=== PATIENT | female | born 1960 | race Caucasian/White ===

== ENCOUNTER → 2021-04-13 08:21 | Outpatient (CLI) | payer MEDICARE, OTHER, SELFPAY ==
--- NOTE | 2021-04-13 08:27 | US_ITS ---
PROCEDURE: US GALLBLADDER CLINICAL INDICATION: ABD PAIN COMPARISON: No exams were available for comparison FINDINGS: Pancreas: Unremarkable/Not well seen Liver: Unremarkable. There is appropriate direction of blood flow within a non dilated portal vein. Right kidney: Unremarkable appearing. No hydronephrosis. Gallbladder: No stones are evident. There is no gallbladder wall thickening. Common duct is normal in diameter. IMPRESSION: Negative gallbladder ultrasound. No stones evident. Dictated by: Donny Govea MD 04/13/2021 16:35 Donny Govea MD in [place] 04/13/2021 16:35
== END ==
PROVIDERS: PCP Emergency Medicine; Visit Provider Emergency Medicine
DX: R10.11 Right upper quadrant pain (principal)
CPT/HCPCS: 76705

== ENCOUNTER 2023-04-19 16:23 | Emergency (ER) | payer MEDICARE, OTHER, SELFPAY ==
[2023-04-19 16:24] VITALS: BP 116/65; PULSE 99; RESP 18; TEMP 36.8; O2SAT 92; BMI 36.6
--- NOTE | 2023-04-19 16:24 | HMH.EDGENADL ---
Discharge Plan Disposition Patient Disposition: Xfer SNF Condition: Good Prescriptions Prescriptions: No Action oxybutynin chloride 10 mg Tablet Extended Release 24hr 10 mg PO DAILY Hold Instructions: Resume on 04/30/23. metoprolol tartrate 100 mg Tablet 100 mg PO BID clonazepam 0.5 mg tablet 0.5 mg PO TID Patient Comments: 0.5 MG orally three times a day risperidone 3 mg Tablet 3 mg PO BID nifedipine 60 mg Tablet Extended Release 24hr 60 mg PO DAILY nystatin 100,000 unit/gram Cream 1 applic TOPICAL QIDP PRN (Reason: Redness) bupropion HCl 150 mg Tablet Extended Release 24 Hr 150 mg PO DAILY sodium chloride 1,000 mg tablet,soluble 1,000 mg PO DAILY cephalexin 500 mg capsule 500 mg PO QID 7 Days Qty: 28 0RF Rx Instructions: First dose on 04/24/23 Referrals Follow up/Referrals: Monty Jimenes MD [Primary Care Provider] - See instructions Activity Restrictions/Add. Instructions Additional Instructions/Restrictions: Please take antibiotics as prescribed for UTI. Clinical Impressions Clinical Impression: UTI (urinary tract infection), Fall Discharge ED Provider: Pranav Ambrose General Adult HPI General Chief complaint: Fall Stated complaint: weakness Time Seen by Provider: 04/19/23 16:28 History of Present Illness HPI narrative: 62-year-old female reported history of schizophrenia presents from nursing facility for multiple falls and urinating on herself today. Patient was ambulatory with EMS prior to arrival. Nursing, reports concern for UTI though does not have a diagnosis. Patient is seemingly unwilling to participate in history or exam. She is alert partially oriented. Specifically denies any chest pain shortness of breath headache neck pain back pain or loss of consciousness. Does report left knee pain. Related Data Home Medications Medication Instructions Recorded Confirmed bupropion HCl 150 mg 24 hr tablet, 150 mg PO DAILY mood 04/22/23 04/22/23 extended release clonazepam 0.5 mg tablet 0.5 mg PO TID Anxiety 04/22/23 04/22/23 metoprolol tartrate 100 mg tablet 100 mg PO BID High Blood Pressure 04/22/23 04/22/23 nifedipine 60 mg tablet,extended 60 mg PO DAILY High Blood Pressure 04/22/23 04/22/23 release 24 hr nystatin 100,000 unit/gram topical 1 applic topical QIDP PRN Redness 04/22/23 04/22/23 cream oxybutynin chloride 10 mg 10 mg PO DAILY Urinary 04/22/23 04/22/23 tablet,extended release 24 hr risperidone 3 mg tablet 3 mg PO BID mood 04/22/23 04/22/23 sodium chloride 1,000 mg soluble 1,000 mg PO DAILY Supplement 04/22/23 04/22/23 tablet Previous Rx's Medication Instructions Recorded cephalexin 500 mg capsule 500 mg PO QID 7 days #28 caps 04/23/23 Allergies Allergy/AdvReac Type Severity Reaction Status Date / Time ciprofloxacin [From CIPRO] Allergy Unknown Verified 04/19/23 18:39 [facility] Disclaimer: The information contained in this section may have been updated after the patient was seen, as this information can be updated by other users. Social History Smoking Status: Never smoker alcohol intake: never current occupational status: disabled Travel in the last 8 weeks: None housing: [facility] ROS Obtained: Yes All systems reviewed & no additional complaints except as documented Physical Exam General General appearance: alert, in no apparent distress and obese Head Head exam: atraumatic and normocephalic Eye Eye exam: Present normal appearance, PERRL and EOMI ENT ENT exam: Present normal oropharynx and normal external ear exam Neck Neck exam: Present normal inspection and full ROM Chest Chest inspection: Present normal inspection and symmetric chest wall rise; Absent tenderness Respiratory Respiratory exam: Present normal lung sounds bilaterally; Absent respiratory distress Cardiovascular Cardiovascular
--- NOTE | 2023-04-19 16:33 | XR_ITS ---
PROCEDURE INFORMATION: Exam: XR Left Knee Exam date and time: 04/19/2023 5:22 PM Age: 62 years old Clinical indication: Injury or trauma; Fall; Blunt trauma; Knee; Left TECHNIQUE: Imaging protocol: Radiologic exam of the left knee. Views: 3 views. Total images: 3 COMPARISON: No relevant prior studies available. FINDINGS: Bones/joints: No evidence of acute fracture or dislocation. Soft tissues: Soft tissues are within normal limits. IMPRESSION: No evidence of acute fracture or dislocation.
--- NOTE | 2023-04-19 16:34 | XR_ITS ---
PROCEDURE INFORMATION: Exam: XR Chest Exam date and time: 04/19/2023 5:22 PM Age: 62 years old Clinical indication: Injury or trauma; Fall; Blunt trauma (contusions or hematomas) TECHNIQUE: Imaging protocol: Radiologic exam of the chest. Views: 1 view. Total images: 1 COMPARISON: No relevant prior studies available. FINDINGS: Lungs: Unremarkable. No consolidation. Pleural spaces: Unremarkable. No pleural effusion. No pneumothorax. Heart/Mediastinum: Unremarkable. No cardiomegaly. Bones/joints: Unremarkable. IMPRESSION: No acute findings.
--- NOTE | 2023-04-19 16:34 | CT_ITS ---
PROCEDURE INFORMATION: Exam: CT Head Without Contrast Exam date and time: 04/19/2023 5:17 PM Age: 62 years old Clinical indication: Injury or trauma; Fall; Additional info: Falls TECHNIQUE: Imaging protocol: Computed tomography of the head without contrast. Total images: 271 Radiation optimization: All CT scans at this facility use at least one of these dose optimization techniques: automated exposure control; mA and/or kV adjustment per patient size (includes targeted exams where dose is matched to clinical indication); or iterative reconstruction. REPORTING DATA: Count of CT and Cardiac NM exams in prior 12 months: This patient has received 0 known CTs and 0 known cardiac nuclear medicine studies in the 12 months prior to the current study. COMPARISON: No relevant prior studies available. FINDINGS: Brain: Age-related atrophy and chronic white matter ischemic changes, with no evidence of an acute intracranial abnormality. No hemorrhage, mass effect or midline shift. Cerebral ventricles: The ventricular system demonstrates mild diffuse enlargement. Paranasal sinuses: Visualized sinuses are unremarkable. No fluid levels. Mastoid air cells: Visualized mastoid air cells are well aerated. Bones/joints: No acute fracture. Soft tissues: No acute changes IMPRESSION: 1. Age-related atrophy and chronic white matter ischemic changes, with no evidence of an acute intracranial abnormality. 2. No hemorrhage, mass effect or midline shift.
--- NOTE | 2023-04-19 16:34 | XR_ITS ---
PROCEDURE INFORMATION: Exam: XR Pelvis Exam date and time: 04/19/2023 5:22 PM Age: 62 years old Clinical indication: Injury or trauma; Fall; Blunt trauma (contusions or hematomas); Bilateral; Hip TECHNIQUE: Imaging protocol: Radiologic exam of the pelvis. Views: 1 or 2 view. Total images: 1 COMPARISON: No relevant prior studies available. FINDINGS: Bones/joints: Degenerative changes of both hips. No evidence of acute fracture or dislocation. Soft tissues: Soft tissues are within normal limits. Gastrointestinal tract: Large amount of stool is present throughout the colon. IMPRESSION: 1. Degenerative changes of both hips. 2. No evidence of acute fracture or dislocation. 3. Large amount of stool is present throughout the colon.
[2023-04-19 17:22] LABS: Microscopic, Urine URINE MICROSCOPIC (MICROSCOPIC)
[2023-04-19 18:04] LABS: Appearance,Urine CLOUDY (Clear); Bilirubin,Urine Negative (Negative); Blood, Urine Negative (Negative); Color,Urine YELLOW (Yellow); Glucose,Urine (UA) Negative (Negative); Ketones,Urine TRACE (Negative); Leukocyte Esterase,Urine 1+ (Negative); Nitrate,Urine Negative (Negative); PH,Urine 8.5 (5.0-8.5); Protein,Urine 2+ (Negative)
[2023-04-19 18:14] LABS: Basophils % 0.2 % (0.1-2.0); Eosinophils # 0.1 K/mm3 (0.0-0.4); Eosinophils % 0.3 % (0.1-12.0); Hematocrit 42.5 % (37.0-47.0); Hemoglobin 13.9 g/dL (12.2-16.2); Lymphocytes # 1.4 K/mm3 (0.7-4.5); Mean Corpuscular HGB Conc 32.8 g/dL (31.8-35.4); Mean Corpuscular Hemoglobin 29.3 pg (27.0-31.2); Mean Corpuscular Volume 89.5 fl (81-99); Mean Platelet Volume 8.2 fl (7.4-10.4); Monocytes # 0.8 K/mm3 (0.1-1.0); Monocytes % 5.2 % (1.7-9.3); Neutrophils # 13.5 K/mm3 (1.8-7.8); Neutrophils % 85.2 % (37.0-80.0); Platelet Count 365 K/mm3 (142-424); Red Blood Count 4.76 M/mm3 (4.20-5.40); Red Cell Distribution Width 13.1 % (11.5-17.5); White Blood Count 15.8 K/mm3 (4.8-10.8)
[2023-04-19 18:17] LABS: MANUAL DIFFERENTIAL MANUAL DIFFERENTIAL (MANUAL DIFF)
[2023-04-19 18:19] LABS: Bacteria,Urine 4+ /lpf; Squamous Epithelial Cell,Urine Occasional #/hpf (0-5)
[2023-04-19 18:33] LABS: Alanine Aminotransferase 19 U/L (12-78); Albumin/Globulin Ratio 1.3 (1.1-1.8); Alkaline Phosphatase 114 U/L (38-126); Anion Gap 12.9 mEq/L (5-15); Aspartate Amino Transferase 31 U/L (14-36); Bilirubin,Total 0.2 mg/dl (0.2-1.3); Blood Urea Nitrogen 16 mg/dl (7-17); Calcium 9.7 mg/dl (8.4-10.2); Carbon Dioxide 27 mmol/L (22.0-30.0); Chloride 105 mmol/L (98-107); Creatinine Clearance Estimated 85 mL/min (50-200); Estimated Glomerular Filt Rate 64 ml/min (>60); GFR (African American) 77 ML/MIN (>60); Glucose 117 mg/dl (74-100); Potassium 3.9 mmoL/L (3.5-5.1); Sodium 141 mmol/L (136-145)
--- NOTE | 2023-04-19 18:42 | PC.NURSE ---
spoke with tien at [facility], notified her pt is ready for d/c. States she will work on a ride for pt.
[2023-04-19 18:43] LABS: Lymphocytes % 8 % (10-50); Monocytes % 2 % (2-9); Neutrophils % 90 % (42-76); RBC Morphology Normal; Total Cells Counted 100
[2023-04-19 18:44] LABS: Platelet Estimate Normal
[2023-04-19 19:19] VITALS: BP 128/64; PULSE 95; RESP 18; TEMP 36.9; O2SAT 94
== END 2023-04-19 19:20 ==
PROVIDERS: Emergency Provider Emergency Medicine; PCP Emergency Medicine
DX: N39.0 Urinary tract infection, site not specified (principal); R53.1 Weakness; F20.9 Schizophrenia, unspecified; I10 Essential (primary) hypertension; W19.XXXA Unspecified fall, initial encounter
CPT/HCPCS: 70450; 71045; 72170; 73562; 80053; 81001; 85007; 85025; 87086; 87088; 87186

== ENCOUNTER 2023-04-21 22:53 | Inpatient (IN) | payer MEDICARE, OTHER, SELFPAY ==
[2023-04-21 22:53] VITALS: BP 122/61; PULSE 81; RESP 19; TEMP 38.4; O2SAT 89; BMI 28.3
[2023-04-21 23:00] VITALS: PULSE 80; RESP 20; O2SAT 97
--- NOTE | 2023-04-21 23:12 | PC.NURSE ---
Dr. Delgado at [facility] to speak with pt
--- NOTE | 2023-04-21 23:17 | XR_ITS ---
PROCEDURE INFORMATION: Exam: XR Chest Exam date and time: 04/22/2023 12:18 AM Age: 62 years old Clinical indication: Other: Sepsis; Additional info: Sepsis AMS TECHNIQUE: Imaging protocol: Radiologic exam of the chest. Views: 1 view. COMPARISON: CR XR CHEST PORTABLE 04/19/2023 5:22 PM FINDINGS: Lungs: Unremarkable. No consolidation. Pleural spaces: Unremarkable. No pleural effusion. No pneumothorax. Heart/Mediastinum: Unremarkable. No cardiomegaly. Bones/joints: Unremarkable. IMPRESSION: No acute findings.
--- NOTE | 2023-04-21 23:17 | CT_ITS ---
PROCEDURE INFORMATION: Exam: CT Abdomen And Pelvis With Contrast Exam date and time: 04/22/2023 12:33 AM Age: 62 years old Clinical indication: Other: AMS; Additional info: AMS abdominal pain TECHNIQUE: Imaging protocol: Computed tomography of the abdomen and pelvis with contrast. Radiation optimization: All CT scans at this facility use at least one of these dose optimization techniques: automated exposure control; mA and/or kV adjustment per patient size (includes targeted exams where dose is matched to clinical indication); or iterative reconstruction. Contrast material: ISOVUE; Contrast volume: 75 ml; Contrast route: IV; REPORTING DATA: Count of CT and Cardiac NM exams in prior 12 months: This patient has received [address] and 0 known cardiac nuclear medicine studies in the 12 months prior to the current study. COMPARISON: CR XR PELVIS 1-2V 04/19/2023 5:22 PM FINDINGS: Liver: Normal. No mass. Gallbladder and bile ducts: Normal. No calcified stones. No ductal dilation. Pancreas: Normal. No ductal dilation. Spleen: Normal. No splenomegaly. Adrenal glands: Normal. No mass. Kidneys and ureters: Normal. No hydronephrosis. Stomach and bowel: Unremarkable. No obstruction. No mucosal thickening. Appendix: No evidence of appendicitis. Intraperitoneal space: Unremarkable. No free air. No significant fluid collection. Vasculature: There is atherosclerotic disease of the visualized aorta and its major branch vessels. Lymph nodes: Unremarkable. No enlarged lymph nodes. Urinary bladder: There is a Stauffer catheter place within the urinary bladder. There is moderate distention of the urinary bladder. Reproductive: Unremarkable as visualized. Bones/joints: There is diffuse degenerative disease of the visualized osseous structures. Soft tissues: Unremarkable. IMPRESSION: No acute pathology is identified in the abdomen or pelvis.
--- NOTE | 2023-04-21 23:17 | CT_ITS ---
PROCEDURE INFORMATION: Exam: CT Head Without Contrast Exam date and time: 04/22/2023 12:30 AM Age: 62 years old Clinical indication: Altered mental status/memory loss; Additional info: AMS TECHNIQUE: Imaging protocol: Computed tomography of the head without contrast. Radiation optimization: All CT scans at this facility use at least one of these dose optimization techniques: automated exposure control; mA and/or kV adjustment per patient size (includes targeted exams where dose is matched to clinical indication); or iterative reconstruction. REPORTING DATA: Count of CT and Cardiac NM exams in prior 12 months: This patient has received [address] and 0 known cardiac nuclear medicine studies in the 12 months prior to the current study. COMPARISON: CT HEAD/BRAIN WO CON 04/19/2023 5:17 PM FINDINGS: Brain: There are scattered white matter changes with areas of hypodensity which are nonspecific but most likely reflect chronic microvascular disease. No evidence for acute intracranial hemorrhage, midline shift, or mass effect. No compelling evidence for acute transcortical infarct. Cerebral ventricles: There is enlargement of the ventricles and sulci compatible with age-related atrophy. Paranasal sinuses: Visualized sinuses are unremarkable. No fluid levels. Mastoid air cells: Visualized mastoid air cells are well aerated. Bones/joints: Unremarkable. No acute fracture. Soft tissues: Unremarkable. IMPRESSION: Age-related changes without acute abnormality detected.
[2023-04-21 23:20] LABS: VBG Base Excess -3.6 mmol/L (-2.4-2.3); VBG HCO3 21.7 mmol/L (23-30); VBG Oxygen Saturation 85.9 % (50-70); VBG PH 7.36 mmol/L (7.31-7.41); VBG Total CO2 22.9 mmol/L (23-27)
[2023-04-21 23:24] LABS: Basophils % 0.2 % (0.1-2.0); Chloride 103 mmol/L (98-107); Eosinophils # 0.2 K/mm3 (0.0-0.4); Eosinophils % 1.4 % (0.1-12.0); Hemoglobin 14.2 g/dL (12.2-16.2); Lymphocytes # 1.9 K/mm3 (0.7-4.5); Lymphocytes % 10.9 % (10-50); Mean Corpuscular Hemoglobin 29.6 pg (27.0-31.2); Mean Corpuscular Volume 89.7 fl (81-99); Mean Platelet Volume 8.7 fl (7.4-10.4); Monocytes # 0.8 K/mm3 (0.1-1.0); Monocytes % 4.4 % (1.7-9.3); Neutrophils # 14.5 K/mm3 (1.8-7.8); Neutrophils % 83.1 % (37.0-80.0); Platelet Count 390 K/mm3 (142-424); Red Blood Count 4.79 M/mm3 (4.20-5.40); Red Cell Distribution Width 13.1 % (11.5-17.5); Sodium 140 mmol/L (136-145); White Blood Count 17.4 K/mm3 (4.8-10.8)
[2023-04-21 23:25] LABS: Potassium 3.9 mmoL/L (3.5-5.1)
[2023-04-21 23:27] LABS: Alanine Aminotransferase 28 U/L (12-78); Albumin Level 4.2 g/dl (3.5-5.0); Albumin/Globulin Ratio 1.1 (1.1-1.8); Alkaline Phosphatase 121 U/L (38-126); Aspartate Amino Transferase 85 U/L (14-36); Bilirubin,Total 0.7 mg/dl (0.2-1.3); Blood Urea Nitrogen 12 mg/dl (7-17); Creatinine Clearance Estimated 70 mL/min (50-200); Estimated Glomerular Filt Rate 73 ml/min (>60); GFR (African American) 88 ML/MIN (>60); Globulin 3.8 g/dL (1.3-3.2)
[2023-04-21 23:28] LABS: Calcium 10.8 mg/dl (8.4-10.2); Glucose 123 mg/dl (74-100); Lactic Acid 1.5 mmol/L (0.7-2.1)
[2023-04-21 23:29] LABS: MANUAL DIFFERENTIAL MANUAL DIFFERENTIAL (MANUAL DIFF)
[2023-04-21 23:31] LABS: Anion Gap 17.9 mEq/L (5-15); Carbon Dioxide 23 mmol/L (22.0-30.0)
[2023-04-21 23:44] LABS: Lymphocytes % 15 % (10-50); Monocytes % 1 % (2-9); Neutrophils % 81 % (42-76); Platelet Estimate Normal; RBC Morphology Normal; Total Cells Counted 100
--- NOTE | 2023-04-21 23:54 | HMH.EDGENADL ---
Discharge Plan Disposition Patient Disposition: Admitted Chief Complaint: Urogenital-Female Prescriptions Prescriptions: No Action haloperidol 5 mg Tablet 5 mg PO BID oxybutynin chloride 10 mg Tablet Extended Release 24hr 10 mg PO DAILY metoprolol tartrate 100 mg Tablet 100 mg PO BID clonazepam 0.5 mg tablet 0.5 mg PO TID Patient Comments: 0.5 MG orally three times a day sulfamethoxazole-trimethoprim 800-160 mg Tablet 1 tab PO DAILY risperidone 3 mg Tablet 3 mg PO BID nifedipine 60 mg Tablet Extended Release 24hr 60 mg PO DAILY nystatin 100,000 unit/gram Cream 1 applic TOPICAL QIDP PRN (Reason: Redness) bupropion HCl 150 mg Tablet Extended Release 24 Hr 150 mg PO DAILY sodium chloride 1,000 mg tablet,soluble 1,000 mg PO DAILY Clinical Impressions Clinical Impression: Sepsis Discharge ED Provider: Kristen Delgado General Adult HPI General Chief complaint: Urogenital-Female Stated complaint: Weakness Time Seen by Provider: 04/21/23 23:11 Mode of Arrival: EMS Source of Information: EMS Limitations: Altered Mental Status Description of Symptoms (Recalled from ER Triage Doc. by RN): 62 F presents via EMS from [facility] with increased weakness, decreased appetite, and worsening UTI symptoms. She was seen here on April 19, prescribed oral abx, but facility was not able to get these started until today. They report patient having not eaten since yesterday, and this evening she is too weak to walk. History of Present Illness HPI narrative: This 62-year-old female presents via EMS from [facility] with concerns of weakness, appetite change, worsening urinary tract infection. Patient is confused but does states she has abdominal pain. She denies dysuria, however she is disoriented and very difficult to obtain history from. Review of recent records demonstrates patient was seen on April 19 and prescribed oral antibiotics for urinary tract infection but these did not start being administered until today. Patient denies nausea or vomiting. Review of records demonstrates patient is allergic to ciprofloxacin. Patient unable to provide additional history at this time. Majority of history obtained from EMS. Related Data Home Medications Medication Instructions Recorded Confirmed bupropion HCl 150 mg 24 hr tablet, 150 mg PO DAILY Psychiatric 04/22/23 04/22/23 extended release clonazepam 0.5 mg tablet 0.5 mg PO TID Psychiatric 04/22/23 04/22/23 haloperidol 5 mg tablet 5 mg PO BID Psychiatric 04/22/23 04/22/23 metoprolol tartrate 100 mg tablet 100 mg PO BID High Blood Pressure 04/22/23 04/22/23 nifedipine 60 mg tablet,extended 60 mg PO DAILY High Blood Pressure 04/22/23 04/22/23 release 24 hr nystatin 100,000 unit/gram topical 1 applic topical QIDP PRN Redness 04/22/23 04/22/23 cream oxybutynin chloride 10 mg 10 mg PO DAILY Urinary 04/22/23 04/22/23 tablet,extended release 24 hr risperidone 3 mg tablet 3 mg PO BID Psychiatric 04/22/23 04/22/23 sodium chloride 1,000 mg soluble 1,000 mg PO DAILY Supplement 04/22/23 04/22/23 tablet sulfamethoxazole 800 1 tab PO DAILY UTI 04/22/23 04/22/23 mg-trimethoprim 160 mg tablet Allergies Allergy/AdvReac Type Severity Reaction Status Date / Time ciprofloxacin [From CIPRO] Allergy Unknown Verified 04/19/23 18:39 [facility] Disclaimer: The information contained in this section may have been updated after the patient was seen, as this information can be updated by other users. Social History Smoking Status: Never smoker alcohol intake: never current occupational status: disabled Travel in the last 8 weeks: None housing: [facility] ROS Obtained: Yes unobtainable due to mental status Review of systems extremely limited secondary to patient's altered mental status Gastrointestinal Gastrointestingal: Reports as per HPI Physi
[2023-04-21 23:55] LABS: Microscopic, Urine URINE MICROSCOPIC (MICROSCOPIC)
[2023-04-21 23:57] VITALS: BP 133/68; PULSE 81; O2SAT 95
[2023-04-21 23:59] LABS: Appearance,Urine CLEAR (Clear); Bilirubin,Urine Negative (Negative); Blood, Urine Negative (Negative); Color,Urine YELLOW (Yellow); Glucose,Urine (UA) Negative (Negative); Ketones,Urine 1+ (Negative); Leukocyte Esterase,Urine Negative (Negative); Nitrate,Urine Negative (Negative); Protein,Urine TRACE (Negative); Specific Gravity, Urine 1.025 (1.005-1.030)
[2023-04-22] VITALS (12 sets, daily range): BP systolic 124–169; BP diastolic 52–107; PULSE 67–88; RESP 15–18; TEMP 36.4–37.2; O2SAT 96–100; BMI 28.0
[2023-04-22 00:08] LABS: Bacteria,Urine 1+ /lpf
[2023-04-22 00:34] LABS: Amphetamine/Metha Screen,Urine Negative ng/ml (<1000); Benzodiazepines Screen,Urine Negative ng/ml (<200)
[2023-04-22 00:35] LABS: Barbiturates Screen,Urine Negative ng/ml (<200)
[2023-04-22 00:36] LABS: Cannabinoid Screen,Urine Negative ng/ml (<50)
[2023-04-22 00:37] LABS: Cocaine Screen,Urine Negative ng/ml (<300); Methadone Screen,Urine Negative ng/ml (<300)
[2023-04-22 00:46] LABS: Opiate Screen,Urine Negative ng/ml (<300)
[2023-04-22 00:47] LABS: Phencyclidine Screen,Urine Negative ng/ml (<25)
--- NOTE | 2023-04-22 01:40 | PC.NURSE ---
OBSERVATION ADMISSION TO 205 DX OF UROSEPSIS TO THE HOSPITALIST.
--- NOTE | 2023-04-22 01:45 | EXP.HP ---
History of Present Illness *Admission Date: 04/22/23 *Reason for visit:: UTI *History of present illness: 62-year-old female [facility] with concerns of weakness, appetite change, worsening urinary tract infection. PMHX of UTI dx on 04/19/23, htn and schizophrenia. Patient is confused but does states she has abdominal pain. She failed out patient therapy for UTI due to not getting medication filled. She meets sepsis criteria w/ a tempature of 101.1, leukocytosis of 17, and known source of infection. Patient denies nausea or vomiting. ED physician consulted hospitalist team for further medical management. The patient was admitted to the medical floor. She is alert but not orentied to place or situation. c/o abd pain. She is currently receiving a sepsis fluid infusion for a total of 2250 mL, Zosyn 4.5 gm, and vancomycin 1.5 gm. . [facility] Disclaimer: The information contained in this section may have been updated after the patient was seen, as this information can be updated by other users. Social History Smoking Status: Never smoker alcohol intake: never current occupational status: disabled Travel in the last 8 weeks: None housing: group home Review of Systems Review of Systems Review of systems:: unable to obtain *Cardiovascular Cardiovascular: Reports as per HPI *Respiratory Respiratory: Reports as per HPI *Gastrointestinal Gastrointestinal: Reports abdominal pain *Genitourinary Genitourinary: Reports as per HPI *Musculoskeletal Musculoskeletal: Reports as per HPI *Neurologic Neurologic: Reports as per HPI Meds Home Medications and Allergies Home Medications Medication Instructions Recorded Confirmed Type bupropion HCl 150 mg 24 hr tablet, 150 mg PO DAILY Psychiatric 04/22/23 04/22/23 History extended release clonazepam 0.5 mg tablet 0.5 mg PO TID Psychiatric 04/22/23 04/22/23 History haloperidol 5 mg tablet 5 mg PO BID Psychiatric 04/22/23 04/22/23 History metoprolol tartrate 100 mg tablet 100 mg PO BID High Blood Pressure 04/22/23 04/22/23 History nifedipine 60 mg tablet,extended 60 mg PO DAILY High Blood Pressure 04/22/23 04/22/23 History release 24 hr nystatin 100,000 unit/gram topical 1 applic topical QIDP PRN Redness 04/22/23 04/22/23 History cream oxybutynin chloride 10 mg 10 mg PO DAILY Urinary 04/22/23 04/22/23 History tablet,extended release 24 hr risperidone 3 mg tablet 3 mg PO BID Psychiatric 04/22/23 04/22/23 History sodium chloride 1,000 mg soluble 1,000 mg PO DAILY Supplement 04/22/23 04/22/23 History tablet sulfamethoxazole 800 1 tab PO DAILY UTI 04/22/23 04/22/23 History mg-trimethoprim 160 mg tablet New Prescriptions to Start Prescriptions: Allergies Allergy/AdvReac Type Severity Reaction Status Date / Time ciprofloxacin [From CIPRO] Allergy Unknown Verified 04/19/23 18:39 Exam Data for Last 24 hours Vital signs and Labs for Last 24 Hours: Temp Pulse Resp BP Pulse Ox O2 Del Method O2 Flow Rate 98.8 F 80 16 135/72 99 Room Air 2 04/22/23 00:56 04/22/23 01:30 04/22/23 01:30 04/22/23 01:30 04/22/23 01:30 04/22/23 01:30 04/22/23 01:30 Laboratory Results - last 24 hr 04/21/23 00:11: Urine Color Yellow, Urine Appearance Clear, Urine pH 6.0, Ur Specific [place] 1.025, Urine Protein Trace, Urine Glucose (UA) Negative, Urine Ketones 1+, Urine Blood Negative, Urine Nitrate Negative, Urine Bilirubin Negative, Urine Urobilinogen 1.0, Ur Leukocyte Esterase Negative, Urine RBC None, Urine WBC 3-5, Ur Squamous Epith Cells None, Urine Bacteria 1+ 04/21/23 23:01: VBG pH 7.36, VBG pCO2 39.0, VBG pO2 55.0 H, VBG HCO3 21.7 L, VBG Total CO2 22.9 L, VBG O2 Saturation 85.9 H, VBG Base Excess -3.6 L 04/21/23 23:08: WBC 17.4 H, RBC 4.79, Hgb 14.2, Hct 43.0, MCV 89.7, MCH 29.6, MCHC 33.0, RDW 13.1, Plt Count 390, MPV 8.7, Neut % (Auto) 83.1 H, Lymph % (Auto) 10.9, [place] % (
--- NOTE | 2023-04-22 02:16 | PC.NURSE ---
Pt arrived to the floor via stretcher @ 3415
--- NOTE | 2023-04-22 02:40 | PC.NURSE ---
AT 0226 PT WAS BEING TRANSFERRED TO BED FROM STRETCHER AND A BEDBUG WAS FOUND IN PT BED. BED BUG PLACED IN A SPECIMEN CUP AND SENT TO THE LAB FOR CONFORMATION. LAB CALLED BACK AT 0233 WITH CONFORMATION. PT IS BEING DECONTAMINATED/BATHED AND CLOTHS TAKEN TO THE BARN AT THIS TIME.
--- NOTE | 2023-04-22 03:11 | PC.NURSE ---
Pt very confused, only able to tell me her name. Pt does follow commands. admission completed to best of my ability.
--- NOTE | 2023-04-22 05:51 | EXP.SEPSISRE ---
[facility] Tissue Perfusion Eval Sepsis Re-Evaluation Performed: Yes Date Performed: 04/22/23 Time Performed: 05:51
--- NOTE | 2023-04-22 06:59 | PC.NURSE ---
pt alert and oriented to person and place this morning. pt has no complaints. Hard, red, warm, swollen area noted to pts right side of face, close to ear. Hospitalist aware. Stauffer cath in place draining dark, clear urine. pt received sepsis bolus and iv abx.
[2023-04-22 07:35] LABS: Basophils % 0.2 % (0.1-2.0); Eosinophils # 0.2 K/mm3 (0.0-0.4); Hematocrit 37.5 % (37.0-47.0); Lymphocytes # 2.8 K/mm3 (0.7-4.5); Lymphocytes % 17.1 % (10-50); Mean Corpuscular HGB Conc 32.8 g/dL (31.8-35.4); Mean Corpuscular Hemoglobin 29.7 pg (27.0-31.2); Mean Corpuscular Volume 90.4 fl (81-99); Mean Platelet Volume 8.3 fl (7.4-10.4); Monocytes # 1.2 K/mm3 (0.1-1.0); Monocytes % 7.3 % (1.7-9.3); Neutrophils # 12.1 K/mm3 (1.8-7.8); Neutrophils % 74.4 % (37.0-80.0); Platelet Count 323 K/mm3 (142-424); Red Blood Count 4.15 M/mm3 (4.20-5.40); Red Cell Distribution Width 13.1 % (11.5-17.5); White Blood Count 16.3 K/mm3 (4.8-10.8)
[2023-04-22 07:38] LABS: Chloride 105 mmol/L (98-107); Potassium 3.1 mmoL/L (3.5-5.1); Sodium 138 mmol/L (136-145)
[2023-04-22 07:41] LABS: Anion Gap 11.1 mEq/L (5-15); Blood Urea Nitrogen 6 mg/dl (7-17); Calcium 9.6 mg/dl (8.4-10.2); Carbon Dioxide 25 mmol/L (22.0-30.0); Creatinine Clearance Estimated 69 mL/min (50-200); Estimated Glomerular Filt Rate 102 ml/min (>60); GFR (African American) 123 ML/MIN (>60); Glucose 123 mg/dl (74-100)
[2023-04-22 08:30] LABS: Hemoglobin 12.2 g/dL (12.2-16.2)
--- NOTE | 2023-04-22 10:18 | CT_ITS ---
PROCEDURE INFORMATION: Exam: CT Maxillofacial With Contrast Exam date and time: 04/22/2023 12:22 PM Age: 62 years old Clinical indication: Face pain; Additional info: R facial cellulitis TECHNIQUE: Imaging protocol: Computed tomography of the face with contrast. Radiation optimization: All CT scans at this facility use at least one of these dose optimization techniques: automated exposure control; mA and/or kV adjustment per patient size (includes targeted exams where dose is matched to clinical indication); or iterative reconstruction. Contrast material: ISOVUE; Contrast volume: 75 ml; Contrast route: IV; REPORTING DATA: Count of CT and Cardiac NM exams in prior 12 months: This patient has received [address] and 0 known cardiac nuclear medicine studies in the 12 months prior to the current study. COMPARISON: CT HEAD/BRAIN WO CON 04/22/2023 12:30 AM FINDINGS: Orbital cavities: Orbits are normal. Globes are unremarkable. Bones/joints: No acute fracture. Paranasal sinuses: Normal. No air-fluid levels. Salivary glands: There is diffuse stranding and enhancing involving the right parotid and right submandibular glands. No sialolith. No discrete collection. Lymph nodes: Borderline prominent, multi station lymph nodes likely reactive. Soft tissues: The right platysma muscle is thickened. IMPRESSION: Findings can be attributed to right sialoadenitis in the appropriate clinical context.
[2023-04-22 11:51] LABS: POC Glucose,Bedside 100 (70-110)
--- NOTE | 2023-04-22 16:27 | PC.NURSE ---
PT IS RESTING IN BED. NO COMPLAINTS OF DISCOMFORT. APPETITE HAS BEEN POOR HOWEVER PT HAS BEEN DRINKING LIQUIDS. PT WILL ANSWER SIMPLE YES OR NO QUESTIONS AND IS VERY SLOW TO RESPOND. ALERT AND ORIENTED TO SELF. PT HAS ATTEMPTED TO GET OOB SEVERAL TIMES THIS SHIFT. PT WAS OFFERED TO BE ASSISTED TO THE CHAIR AND SHE STATED NO I'M TIRED . 1400 ML'S UOP EMPTIED FROM CATHETER. LUNG SOUNDS CLEAR. ABDOMEN SOFT/NON TENDER WITH ACTIVE BOWEL SOUNDS. PT HAS HAD A COUPLE OF LOOSE BOWEL MOVEMENTS THIS SHIFT. WILL CONTINUE TO MONITOR.
[2023-04-23] VITALS: BP 141/74; PULSE 79; RESP 16; TEMP 37; O2SAT 95
[2023-04-23 04:00] VITALS: BP 149/81; PULSE 81; RESP 16; TEMP 37.1; O2SAT 98; BMI 27.3
--- NOTE | 2023-04-23 04:20 | PC.NURSE ---
No acute changes since assuming pt care. Pt has rested well. No c/o pain. VSS. Stauffer remains in place. Bed alarm remains in place for pt safety.
[2023-04-23 07:35] LABS: Basophils % 0.3 % (0.1-2.0); Eosinophils # 0.3 K/mm3 (0.0-0.4); Eosinophils % 2.9 % (0.1-12.0); Hematocrit 40.7 % (37.0-47.0); Hemoglobin 13.2 g/dL (12.2-16.2); Lymphocytes # 2.4 K/mm3 (0.7-4.5); Lymphocytes % 20.7 % (10-50); Mean Corpuscular HGB Conc 32.5 g/dL (31.8-35.4); Mean Corpuscular Hemoglobin 29.8 pg (27.0-31.2); Mean Corpuscular Volume 91.8 fl (81-99); Monocytes # 0.7 K/mm3 (0.1-1.0); Monocytes % 5.8 % (1.7-9.3); Neutrophils # 8.2 K/mm3 (1.8-7.8); Neutrophils % 70.4 % (37.0-80.0); Platelet Count 349 K/mm3 (142-424); Red Blood Count 4.44 M/mm3 (4.20-5.40); Red Cell Distribution Width 13.1 % (11.5-17.5); White Blood Count 11.7 K/mm3 (4.8-10.8)
--- NOTE | 2023-04-23 07:51 | EXP.DC.SUM ---
General Admission date:: 04/22/23 Discharge date: 04/23/23 HPI HPI HPI: Forwarded from admission H&P: 62-year-old female presented to the ED via EMS from [facility] with concerns of weakness, appetite change, worsening urinary tract infection. PMHX of UTI dx on 04/19/23, htn and schizophrenia. Patient is confused but does states she has abdominal pain. She failed out patient therapy for UTI due to not getting medication filled. She meets sepsis criteria w/ a tempature of 101.1, leukocytosis of 17, and known source of infection. Patient denies nausea or vomiting. ED physician consulted hospitalist team for further medical management. The patient was admitted to the medical floor. She is alert but not orentied to place or situation. c/o abd pain. She is currently receiving a sepsis fluid infusion for a total of 2250 mL, Zosyn 4.5 gm, and vancomycin 1.5 gm. . Hospital Course Hospital Course Hospital Course: In the ED the patinet received 2.3L fluid bolus and was started on vancomycin and zosyn. Antibiotics were changed to Rocephin. The patient's urine culture did not grow anything. On exam she was found to have R sided facial swelling at the angle of the mandible on the right side. CT face was indicative of acute sialoadenitis. She was recommended to keep well hydrated, apply moist heat to swelling and to suck on tart hard candies to promote salivary flow. She will need to take 7 days of cephalexin and is to hold her oxybutinin for one week to avoid potential anticholinergic adverse effects. She is to f/u with E/N/T and her PCP. The patient improved sooner than we expected. She was afebrile throughout the hospital course and her leukocytosis was resolving. Exam Data for Last 24 hours Vital signs and Labs for Last 24 Hours: Temp Pulse Resp BP Pulse Ox O2 Del Method O2 Flow Rate 98.7 F 81 16 149/81 H 98 Room Air 2 04/23/23 04:00 04/23/23 04:00 04/23/23 04:00 04/23/23 04:00 04/23/23 04:00 04/23/23 06:48 04/22/23 20:47 Laboratory Results - last 24 hr 04/22/23 04:18: POC Glucose 100 04/22/23 06:51: Hgb 12.2 D 04/23/23 07:25: WBC 11.7 H D, RBC 4.44, Hgb 13.2, Hct 40.7, MCV 91.8, MCH 29.8, MCHC 32.5, RDW 13.1, Plt Count 349, MPV 8.0, Neut % (Auto) 70.4, Lymph % (Auto) 20.7, Sanders % (Auto) 5.8, Eos % (Auto) 2.9, Baso % (Auto) 0.3, Neut # (Auto) 8.2 H, Lymph # (Auto) 2.4, Sanders # (Auto) 0.7, Eos # (Auto) 0.3, Baso # (Auto) 0.0 I & O for Last 24 hours: Intake & Output 04/20/23 04/21/23 04/22/23 04/23/23 23:59 23:59 23:59 23:59 Intake Total 6330 / 6330 1061 / 1061 Output Total 5600 / 6300 700 / 700 Balance 730 / 30 361 / 361 Weight 74.933 kg 74.389 kg 72.756 kg Microbiology Reports for the Last 24 Hours: Microbiology 04/21/23 23:52 Urine,Catheterized Urine Culture - Preliminary NO GROWTH AFTER 24 HOURS Constitutional Constitutional: no acute distress *Routine HEENT Exam Head: Present normocephalic Eye: Present EOMI and PERRL ENT: Present mucous membranes moist Comments: Swelling, redness, tenderness at the angle of the mandible on the right. Less swelling, redness, tenderness compared to yesterday. *Routine Neck Exam Neck: Present supple; Absent lymphadenopathy *Routine Respiratory Exam Respiratory: Present CTA bilaterally *Routine Cardiovascular Exam Cardiovascular: Present RRR *Routine Abdominal Exam Abdominal: Present soft and normoactive bowel sounds; Absent tenderness *Routine Extremities Exam Extremities: Absent cyanosis, clubbing or edema *Routine Skin Exam Skin: Present warm; Absent rash *Routine Neurological Exam Neurological: Present alert and oriented X3 Results Data Completed and Pending Completed studies during hospitalization [Text1]: urine culture: no growth at 24hrs Face ct 04/22/23: FINDINGS: Orbital cavities: Orbits are normal. Globes are unremarkable. Bones/joints: No acute fracture. Paranasal sinuses: Normal. No air-fluid levels. Sa
[2023-04-23 07:52] LABS: Chloride 105 mmol/L (98-107); Sodium 139 mmol/L (136-145)
[2023-04-23 07:53] LABS: Potassium 3.7 mmoL/L (3.5-5.1)
[2023-04-23 07:55] LABS: Blood Urea Nitrogen 3 mg/dl (7-17); Creatinine Clearance Estimated 68 mL/min (50-200); Estimated Glomerular Filt Rate 102 ml/min (>60); GFR (African American) 123 ML/MIN (>60)
[2023-04-23 07:56] LABS: Anion Gap 13.7 mEq/L (5-15); Calcium 9.8 mg/dl (8.4-10.2); Carbon Dioxide 24 mmol/L (22.0-30.0); Glucose 89 mg/dl (74-100); Magnesium 1.8 mg/dl (1.6-2.3)
[2023-04-23 08:00] VITALS: BP 127/66; PULSE 88; RESP 18; TEMP 37.1; O2SAT 97
--- NOTE | 2023-04-23 09:31 | SW/DCPLANNER ---
Addendum entered by Kathleen Carlson RN 04/23/23 16:21: [facility] contacted for transportation to [facility]. FABIOLA Price Addendum entered by Mechelle Benitez 04/23/23 11:34: I have update Lea grijalva/ [facility] that patient will return today. Patient is safe to return per PT. Original Note: Patient currently resides at [facility]. PT will evaluate the patient today. The plan for this patient is to return to [facility] today pending PT evaluation.
--- NOTE | 2023-04-23 12:24 | HMH.PTEV ---
Physical Therapy Evaluation Rehab PT IP Evaluation Start: 04/23/23 08:42 Freq: ONCE Status: Active Protocol: Document 04/23/23 11:02 SNOW (Rec: 04/23/23 12:23 SNOW [id number]) Subjective/History History History Pt is a 62-year-old female presented to the ED via EMS from [facility] with concerns of weakness, appetite change, worsening urinary tract infection. Per history & physical note, patient is confused but does states she has abdominal pain. She failed out patient therapy for UTI due to not getting medication filled. She meets sepsis criteria w/ a tempature of 101.1, leukocytosis of 17, and known source of infection . Patient denies nausea or vomiting. ED physician consulted hospitalist team for further medical management. PMHX of UTI dx on 04/19/23, htn and schizophrenia. Subjective Subjective Pt only oriented to name upon arrival. Pt poor historian and unable to give subjective history at this time. Pt agreeable to PT evaluation. Pt performed bed mobility and sit to stand wtih CGA. Pt ambulated to restroom and performed toileting hygience with MUSEUM PREPARATOR and verbal cueing for proper performance and to correct impulsive acts. Pt ambulated back to the bed and when instructed to perform sit to stand bed transfer pt demonstrated impulsive act with inability to follow simple commands and tried to get into the bed by rolling onto it. Pt was able to correct and properly perform transfer with cueing. Due to cognitive impairments and impulsivity, pt required maximal verbal cueing
--- NOTE | 2023-04-23 12:30 | PC.NURSE ---
Dr. Rasmussen notified of pts altered level of consciousness, pt. only responding to sternal rub.
--- NOTE | 2023-04-23 15:24 | HMH.PTEV ---
Physical Therapy Evaluation Rehab PT IP Evaluation Start: 04/23/23 08:42 Freq: ONCE Status: Complete Protocol: Document 04/23/23 11:02 SNOW (Rec: 04/23/23 12:23 SNOW [id number]) Subjective/History History History Pt is a 62-year-old female presented to the ED via EMS from [facility] with concerns of weakness, appetite change, worsening urinary tract infection. Per history & physical note, patient is confused but does states she has abdominal pain. She failed out patient therapy for UTI due to not getting medication filled. She meets sepsis criteria w/ a tempature of 101.1, leukocytosis of 17, and known source of infection . Patient denies nausea or vomiting. ED physician consulted hospitalist team for further medical management. PMHX of UTI dx on 04/19/23, htn and schizophrenia. Subjective Subjective Pt only oriented to name upon arrival. Pt poor historian and unable to give subjective history at this time. Pt agreeable to PT evaluation. Pt performed bed mobility and sit to stand wtih CGA. Pt ambulated to restroom and performed toileting hygience with MANAGER HYDRAULIC and verbal cueing for proper performance and to correct impulsive acts. Pt ambulated back to the bed and when instructed to perform sit to stand bed transfer pt demonstrated impulsive act with inability to follow simple commands and tried to get into the bed by rolling onto it. Pt was able to correct and properly perform transfer with cueing. Due to cognitive impairments and impulsivity, pt required maximal verbal cueing
== END 2023-04-23 17:22 | disposition home or self-care (01) | DRG 690 ==
LOC: ER 04-22 00:37 → 2ND 04-22 01:53
PROVIDERS: Nurse Practitioner Critical Care Medicine; Admitting Provider Internal Medicine; Emergency Provider Emergency Medicine; PCP Emergency Medicine; Visit Provider Internal Medicine
DX: N39.0 Urinary tract infection, site not specified (principal); I10 Essential (primary) hypertension; F20.9 Schizophrenia, unspecified
CPT/HCPCS: 36415; 51702; 70450; 70487; 71045; 72170; 73562; 74177; 80048; 80053; 80305; 81001; 82803; 82962; 83605; 83735; 85007; 85025; 87040; 87086; 87088; 87186; 94760; 97162; 99291; G0378; J0696; J2543; Q9967

== ENCOUNTER 2023-05-11 20:22 | Emergency (ER) | payer MEDICARE, OTHER, SELFPAY ==
[2023-05-11 20:48] VITALS: BP 128/67; PULSE 69; RESP 16; TEMP 36.9; O2SAT 96; BMI 30.7
--- NOTE | 2023-05-11 23:14 | HMH.EDGENADL ---
Discharge Plan Disposition Patient Disposition: Home Health Service Condition: Good Prescriptions Prescriptions: No Action oxybutynin chloride 10 mg Tablet Extended Release 24hr 10 mg PO DAILY Hold Instructions: Resume on 04/30/23. metoprolol tartrate 100 mg Tablet 100 mg PO BID clonazepam 0.5 mg tablet 0.5 mg PO TID Patient Comments: 0.5 MG orally three times a day risperidone 3 mg Tablet 3 mg PO BID nifedipine 60 mg Tablet Extended Release 24hr 60 mg PO DAILY nystatin 100,000 unit/gram Cream 1 applic TOPICAL QIDP PRN (Reason: Redness) bupropion HCl 150 mg Tablet Extended Release 24 Hr 150 mg PO DAILY sodium chloride 1,000 mg tablet,soluble 1,000 mg PO DAILY cephalexin 500 mg capsule 500 mg PO QID 7 Days Qty: 28 0RF Rx Instructions: First dose on 04/24/23 Referrals Follow up/Referrals: Provider,Referral, MD [Primary Care Provider] - See instructions Activity Restrictions/Add. Instructions Additional Instructions/Restrictions: It appears that her head injury was off a relatively low mechanism and given that she has exhibited no focal deficits and is denying any head pain, she is cleared for discharge at this time. Please return with any new or worsening symptoms. Clinical Impressions Clinical Impression: CHI (closed head injury) Qualifiers: Encounter type: initial encounter Qualified Code(s): S09.90XA - Unspecified injury of head, initial encounter Discharge ED Provider: Miki Morales Adult HPI General Chief complaint: Fall Stated complaint: fall Time Seen by Provider: 05/11/23 22:55 Mode of Arrival: EMS Source of Information: Patient and EMS Limitations: No Limitations Description of Symptoms (Recalled from ER Triage Doc. by RN): EMS reports pt started to run from staff after they tried to give her meds. per EMS the pt fell and hit the top of her head on a door knob. upon pt arrival she states that she is no longer having any pain in her head. is A&O x4 GCS 15. however, the pt is slow to respond. according to [facility] employee pt is at her baseline and this is normal for her. no LOC. History of Present Illness HPI narrative: Patient presents for evaluation of closed head injury after striking head on door, witnessed by senior care facility staff after trying to give patient medications. Patient did not lose consciousness, has been acting normally since that time. Of note, does have history of schizophrenia, hypertension. No nausea or vomiting, no numbness or tingling, denies any pain. Injury is closed. No visual complaints. No blood thinner usage. Related Data Home Medications Medication Instructions Recorded Confirmed bupropion HCl 150 mg 24 hr tablet, 150 mg PO DAILY mood 04/22/23 04/22/23 extended release clonazepam 0.5 mg tablet 0.5 mg PO TID Anxiety 04/22/23 04/22/23 metoprolol tartrate 100 mg tablet 100 mg PO BID High Blood Pressure 04/22/23 04/22/23 nifedipine 60 mg tablet,extended 60 mg PO DAILY High Blood Pressure 04/22/23 04/22/23 release 24 hr nystatin 100,000 unit/gram topical 1 applic topical QIDP PRN Redness 04/22/23 04/22/23 cream oxybutynin chloride 10 mg 10 mg PO DAILY Urinary 04/22/23 04/22/23 tablet,extended release 24 hr risperidone 3 mg tablet 3 mg PO BID mood 04/22/23 04/22/23 sodium chloride 1,000 mg soluble 1,000 mg PO DAILY Supplement 04/22/23 04/22/23 tablet Previous Rx's Medication Instructions Recorded cephalexin 500 mg capsule 500 mg PO QID 7 days #28 caps 04/23/23 Allergies Allergy/AdvReac Type Severity Reaction Status Date / Time ciprofloxacin [From CIPRO] Allergy Unknown Verified 04/19/23 18:39 [facility] Disclaimer: The information contained in this section may have been updated after the patient was seen, as this information can be updated by other users. Social History Smoking Status: Never smoker
[2023-05-11 23:25] LABS: POC Glucose,Bedside 84 (70-110)
--- NOTE | 2023-05-11 23:46 | PC.NURSE ---
called report to [facility] and told them the pt was ready for d/c. staff reports they do not have vehicles or any way to transport Katie. will continue to find transport.
--- NOTE | 2023-05-11 23:49 | PC.NURSE ---
attempted to get transport from [facility]. staff reported they did not have anyone available.
--- NOTE | 2023-05-12 00:10 | PC.NURSE ---
Called [facility], workers unable to come and get patient. called [facility], phone number was disconnected. called [facility] they were unable to assist. called dispatch an Officer will be here to take patient to [facility].
[2023-05-12 00:20] VITALS: BP 158/87; PULSE 63; RESP 16; TEMP 36.6; O2SAT 97
== END 2023-05-12 00:25 | disposition home health service (06) ==
PROVIDERS: Emergency Provider Emergency Medicine
DX: S09.90XA Unspecified injury of head, initial encounter (principal); F20.9 Schizophrenia, unspecified; I10 Essential (primary) hypertension; W01.198A Fall on same level from slipping, tripping and stumbling with subsequent striking against other object, initial encounter
CPT/HCPCS: 82962; 99283

== ENCOUNTER 2023-05-29 13:50 | Emergency (ER) | payer MEDICARE, OTHER, SELFPAY ==
[2023-05-29] VITALS (10 sets, daily range): BP systolic 100–128; BP diastolic 46–74; PULSE 64–74; RESP 16–17; TEMP 36.6; O2SAT 95–99; BMI 28.1; BMI 28.3
--- NOTE | 2023-05-29 14:03 | CT_ITS ---
FINAL REPORT TECHNIQUE: Thin section axial images were obtained through the cervical spine without contrast. Multiplanar reconstruction images were obtained from the axial data. Exam was performed using dose reduction techniques. CLINICAL HISTORY: fall, AMS FINDINGS: There is no acute fracture or acute malalignment of the cervical spine. There is mild multilevel degenerative disc disease. There is no evidence of unilateral or bilateral facet lock. Vertebral body height is preserved. No acute paraspinal abnormality is identified. IMPRESSION: Mild multilevel degenerative disc disease without acute osseous abnormality. Reviewed, Interpreted and Dictated by Michelle Ballesteros MD Transcribed by Alessia Pelayo Authenticated and [facility]
--- NOTE | 2023-05-29 14:03 | XR_ITS ---
FINAL REPORT CLINICAL HISTORY: AMS FINDINGS: A single PA view of the chest was obtained. There is no prior exam for comparison. The cardiac and mediastinal silhouettes are within normal limits. The lungs are clear. There is no effusion or pneumothorax. IMPRESSION: No radiographic evidence of acute cardiac or pulmonary disease on this single view of the chest. Reviewed, Interpreted and Dictated by Michelle Ballesteros MD Transcribed by Alessia Pelayo Authenticated and [facility]
--- NOTE | 2023-05-29 14:03 | CT_ITS ---
FINAL REPORT TECHNIQUE: Thin section axial images were obtained from skull base to vertex without contrast. Coronal reconstruction images were obtained from the axial data. Exam was performed using dose reduction technique. CLINICAL HISTORY: fall, AMS COMPARISON: 04/22/2023 FINDINGS: There is age-appropriate atrophy. There is no mass effect or midline shift. There is no intracranial hemorrhage. There is no hydrocephalus. Periventricular low density is likely related to changes of chronic small vessel ischemia. The basilar cisterns are preserved. The posterior fossa is without acute abnormality. The soft tissues are without acute abnormality. No acute osseous abnormality is identified. IMPRESSION: No acute intracranial abnormality. Atrophy and changes suggesting chronic small vessel ischemia. Reviewed, Interpreted and Dictated by Michelle Ballesteros MD Transcribed by Alessia Pelayo Authenticated and . [facility]
[2023-05-29 14:11] LABS: POC Glucose,Bedside 96 (70-110)
--- NOTE | 2023-05-29 14:14 | PC.NURSE ---
PT to CT
[2023-05-29 14:28] LABS: Basophils % 0.6 % (0.1-2.0); Eosinophils # 0.1 K/mm3 (0.0-0.4); Eosinophils % 2.3 % (0.1-12.0); Hematocrit 45.1 % (37.0-47.0); Hemoglobin 14.2 g/dL (12.2-16.2); Lymphocytes # 2.1 K/mm3 (0.7-4.5); Lymphocytes % 41.5 % (10-50); Mean Corpuscular HGB Conc 31.5 g/dL (31.8-35.4); Mean Corpuscular Hemoglobin 28.8 pg (27.0-31.2); Mean Corpuscular Volume 91.5 fl (81-99); Mean Platelet Volume 8.2 fl (7.4-10.4); Monocytes # 0.6 K/mm3 (0.1-1.0); Neutrophils # 2.2 K/mm3 (1.8-7.8); Neutrophils % 43.6 % (37.0-80.0); Platelet Count 336 K/mm3 (142-424); Red Blood Count 4.93 M/mm3 (4.20-5.40); Red Cell Distribution Width 14.1 % (11.5-17.5); White Blood Count 5.1 K/mm3 (4.8-10.8)
[2023-05-29 14:34] LABS: Alanine Aminotransferase 27 U/L (12-78); Albumin Level 3.6 g/dl (3.5-5.0); Albumin/Globulin Ratio 1.2 (1.1-1.8); Alkaline Phosphatase 116 U/L (38-126); Anion Gap 12.1 mEq/L (5-15); Aspartate Amino Transferase 43 U/L (14-36); Bilirubin,Total 0.4 mg/dl (0.2-1.3); Blood Urea Nitrogen 12 mg/dl (7-17); Calcium 9.6 mg/dl (8.4-10.2); Carbon Dioxide 25 mmol/L (22.0-30.0); Chloride 106 mmol/L (98-107); Creatinine Clearance Estimated 70 mL/min (50-200); Estimated Glomerular Filt Rate 85 ml/min (>60); GFR (African American) 103 ML/MIN (>60); Glucose 110 mg/dl (74-100); Potassium 4.1 mmoL/L (3.5-5.1); Sodium 139 mmol/L (136-145); Total Protein,Serum 6.6 g/dl (6.3-8.2)
[2023-05-29 14:48] LABS: Troponin I < 0.01 ng/ml (0.00-0.034)
[2023-05-29 14:51] LABS: T4 (Thyroxine) 11.5 ug/dl (5.53-11.0)
[2023-05-29 15:04] LABS: Thyroid Stimulating Hormone 1.36 uIU/mL (0.465-4.68)
[2023-05-29 15:40] LABS: Hemoglobin A1C 5.3 % (4.0-6.0)
[2023-05-29 15:47] LABS: Ammonia < 9 umol/L (9-30)
--- NOTE | 2023-05-29 15:53 | HMH.EDGENADL ---
Discharge Plan Disposition Patient Disposition: Xfer Other Chief Complaint: Altered Mental Status Prescriptions Prescriptions: New cefdinir 300 mg capsule 300 mg PO BID 10 Days Qty: 20 0RF No Action oxybutynin chloride 10 mg Tablet Extended Release 24hr 10 mg PO DAILY Hold Instructions: Resume on 04/30/23. metoprolol tartrate 100 mg Tablet 100 mg PO BID clonazepam 0.5 mg tablet 0.5 mg PO TID Patient Comments: 0.5 MG orally three times a day risperidone 3 mg Tablet 3 mg PO BID nifedipine 60 mg Tablet Extended Release 24hr 60 mg PO DAILY nystatin 100,000 unit/gram Cream 1 applic TOPICAL QIDP PRN (Reason: Redness) bupropion HCl 150 mg Tablet Extended Release 24 Hr 150 mg PO DAILY sodium chloride 1,000 mg tablet,soluble 1,000 mg PO DAILY cephalexin 500 mg capsule 500 mg PO QID 7 Days Qty: 28 0RF Rx Instructions: First dose on 04/24/23 Referrals Follow up/Referrals: Provider,Referral, MD [Primary Care Provider] - See instructions Activity Restrictions/Add. Instructions Additional Instructions/Restrictions: You are found to have a urinary tract infection today. Please take your antibiotics as prescribed. If new or worsening symptoms do not hesitate to return the emergency department. Clinical Impressions Clinical Impression: AMS (altered mental status), UTI (urinary tract infection) Discharge ED Provider: Javier Nuñez General Adult HPI <Rajan Timmons MD - Last Filed: 05/29/23 16:19> General Chief complaint: Altered Mental Status Stated complaint: fall Time Seen by Provider: 05/29/23 14:00 Mode of Arrival: EMS Source of Information: EMS Limitations: No Limitations Description of Symptoms (Recalled from ER Triage Doc. by RN): 62 yo F presents to ED with confusion, fall. per staff report at [facility] , pt has had difficulty ambulating for the past few days. pt is unable to verbalize anything but her name. History of Present Illness HPI narrative: 62-year-old female with unknown mental status presenting after fall. Difficulty ambulating the past few days. Unable to verbalize anything but name, and yes or no answers to pain. Related Data Home Medications Medication Instructions Recorded Confirmed bupropion HCl 150 mg 24 hr tablet, 150 mg PO DAILY mood 04/22/23 04/22/23 extended release clonazepam 0.5 mg tablet 0.5 mg PO TID Anxiety 04/22/23 04/22/23 metoprolol tartrate 100 mg tablet 100 mg PO BID High Blood Pressure 04/22/23 04/22/23 nifedipine 60 mg tablet,extended 60 mg PO DAILY High Blood Pressure 04/22/23 04/22/23 release 24 hr nystatin 100,000 unit/gram topical 1 applic topical QIDP PRN Redness 04/22/23 04/22/23 cream oxybutynin chloride 10 mg 10 mg PO DAILY Urinary 04/22/23 04/22/23 tablet,extended release 24 hr risperidone 3 mg tablet 3 mg PO BID mood 04/22/23 04/22/23 sodium chloride 1,000 mg soluble 1,000 mg PO DAILY Supplement 04/22/23 04/22/23 tablet Previous Rx's Medication Instructions Recorded cephalexin 500 mg capsule 500 mg PO QID 7 days #28 caps 04/23/23 cefdinir 300 mg capsule 300 mg PO BID 10 days #20 caps 05/29/23 Allergies Allergy/AdvReac Type Severity Reaction Status Date / Time ciprofloxacin [From CIPRO] Allergy Unknown Verified 04/19/23 18:39 [facility] <Rajan Timmons MD - Last Filed: 05/29/23 16:19> [facility] Disclaimer: The information contained in this section may have been updated after the patient was seen, as this information can be updated by other users. Social History Smoking Status: Former smoker alcohol intake: never current occupational status: disabled Travel in the last 8 weeks: None housing: long term <Rajan Timmons MD - Last Filed: 05/29/23 16:19> FANNIE Obtained: Yes All systems reviewed & no additional complaints except as documented Physical Exam <Rajan Timmons MD - Last Filed: 05/29/23
--- NOTE | 2023-05-29 15:56 | PC.NURSE ---
Rounded on patient; nothing needed at this time. Call light within reach
[2023-05-29 16:12] LABS: Microscopic, Urine URINE MICROSCOPIC (MICROSCOPIC)
[2023-05-29 16:28] LABS: Appearance,Urine CLOUDY (Clear); Bilirubin,Urine Negative (Negative); Blood, Urine Negative (Negative); Color,Urine YELLOW (Yellow); Glucose,Urine (UA) Negative (Negative); Ketones,Urine Negative (Negative); Leukocyte Esterase,Urine 3+ (Negative); Nitrate,Urine POSITIVE (Negative); Protein,Urine Negative (Negative); Specific Gravity, Urine 1.025 (1.005-1.030); Urobilinogen,Urine 0.2 EU/dl (0.2)
--- NOTE | 2023-05-29 16:40 | PC.NURSE ---
Rounded on patient; call light within reach.
[2023-05-29 16:43] LABS: Benzodiazepines Screen,Urine Negative ng/ml (<200)
[2023-05-29 16:44] LABS: Amphetamine/Metha Screen,Urine Negative ng/ml (<1000); Barbiturates Screen,Urine Negative ng/ml (<200)
--- NOTE | 2023-05-29 16:44 | PC.NURSE ---
Patient attempted to get out of bed without assistance. Patient is confused; Fall risk bracelet applied to patient.
[2023-05-29 16:45] LABS: Methadone Screen,Urine Negative ng/ml (<300)
[2023-05-29 16:46] LABS: Cannabinoid Screen,Urine Negative ng/ml (<50); Cocaine Screen,Urine Negative ng/ml (<300)
[2023-05-29 16:48] LABS: Opiate Screen,Urine Negative ng/ml (<300); Phencyclidine Screen,Urine Negative ng/ml (<25)
[2023-05-29 16:54] LABS: Bacteria,Urine 4+ /lpf; RBC,Urine Occasional #/hpf (0-3); Squamous Epithelial Cell,Urine Occasional #/hpf (0-5); WBC,Urine 20-50 #/hpf (0-3)
--- NOTE | 2023-05-29 17:01 | PC.NURSE ---
Attempted call [facility] for an update
--- NOTE | 2023-05-29 17:08 | PC.NURSE ---
Pedro RN @ [facility]
--- NOTE | 2023-05-29 17:14 | PC.NURSE ---
Spoke with Summer from [facility]; Summer reported patient is only oriented to person and birthday. aware
--- NOTE | 2023-05-29 17:35 | PC.NURSE ---
Spoke with Katie from [place] for transportation for patient. Katie stated she will work on it
--- NOTE | 2023-05-29 17:47 | PC.NURSE ---
tien mckeon from [facility] called states someone is on their way up to pick pt up.
[2023-05-29 17:54] LABS: Acetone, Serum (Rapid) None Detected (None Detect)
--- NOTE | 2023-06-01 15:03 | PC.NURSE ---
Preliminary for aerobic blood culture received my self. Discussed with MD Zafar and lab about possible contamination. Per lab they are growing these out in plates and if they are not contaminated then they are growing out and if they are contaminated then they are not. Per lab we are to wait approx 2 days to have confirmed results. Per we will reassess at that time.
--- NOTE | 2023-06-06 09:25 | PC.NURSE ---
pt urine culture resulted with id and sensitivity- citrobacter Farmeri notified Dr. Zafar who is on ED MD on shift at this time. Pt on Cefdinir 300 mg PO BID x10 days. Dr. Zafar states no changes needed to antibiotics.
== END 2023-05-29 18:04 | disposition home or self-care (01) ==
PROVIDERS: Emergency Medicine; Emergency Provider Emergency Medicine
DX: R41.82 Altered mental status, unspecified (principal); N39.0 Urinary tract infection, site not specified; Z87.891 Personal history of nicotine dependence; W19.XXXA Unspecified fall, initial encounter
CPT/HCPCS: 70450; 71045; 72125; 80053; 80305; 81001; 82009; 82140; 82962; 83036; 83605; 84436; 84443; 84484; 85025; 87040; 87086; 87088; 87186; 96361; 96374; 99285; J0696

== ENCOUNTER 2023-06-02 20:16 | Observation (INO) | payer MEDICARE, OTHER, SELFPAY ==
[2023-06-02 20:16] VITALS: BP 114/65; PULSE 63; RESP 15; TEMP 36.6; O2SAT 98; BMI 29.2
--- NOTE | 2023-06-02 20:19 | CT_ITS ---
PROCEDURE INFORMATION: Exam: CT Head Without Contrast Exam date and time: 06/02/2023 8:43 PM Age: 62 years old Clinical indication: Injury or trauma; Fall; Additional info: Fall, head trauma TECHNIQUE: Imaging protocol: Computed tomography of the head without contrast. Radiation optimization: All CT scans at this facility use at least one of these dose optimization techniques: automated exposure control; mA and/or kV adjustment per patient size (includes targeted exams where dose is matched to clinical indication); or iterative reconstruction. REPORTING DATA: Count of CT and Cardiac NM exams in prior 12 months: This patient has received 6 known CTs and 0 known cardiac nuclear medicine studies in the 12 months prior to the current study. COMPARISON: CT HEAD/BRAIN WO CON 05/29/2023 2:21 PM FINDINGS: Brain: Periventricular and subcortical small vessel ischemic changes. Severe atrophy associated. No acute hemorrhage, mass effect, midline shift, or extra-axial fluid collection. Cerebral ventricles: No ventriculomegaly. Paranasal sinuses: Visualized sinuses are unremarkable. No fluid levels. Mastoid air cells: Visualized mastoid air cells are well aerated. Bones/joints: Unremarkable. No acute fracture. Soft tissues: Unremarkable. IMPRESSION: No acute traumatic intracranial abnormality identified.
--- NOTE | 2023-06-02 20:19 | XR_ITS ---
PROCEDURE INFORMATION: Exam: XR Chest Exam date and time: 06/02/2023 9:04 PM Age: 62 years old Clinical indication: Injury or trauma; Fall; Additional info: Chest pain after fall TECHNIQUE: Imaging protocol: Radiologic exam of the chest. Views: 1 view. COMPARISON: CR XR CHEST PORTABLE 04/22/2023 12:18 AM FINDINGS: Lungs: No evidence of acute airspace consolidation. No pulmonary edema. Pleural spaces: No significant pleural effusion. No pneumothorax. Heart/Mediastinum: Cardiomediastinal silouhette is within normal limits. Bones/joints: No evidence of acute osseous abnormality. IMPRESSION: No acute findings.
--- NOTE | 2023-06-02 20:19 | CT_ITS ---
PROCEDURE INFORMATION: Exam: CT Cervical Spine Without Contrast Exam date and time: 06/02/2023 8:46 PM Age: 62 years old Clinical indication: Injury or trauma; Fall TECHNIQUE: Imaging protocol: Computed tomography of the cervical spine without contrast. Radiation optimization: All CT scans at this facility use at least one of these dose optimization techniques: automated exposure control; mA and/or kV adjustment per patient size (includes targeted exams where dose is matched to clinical indication); or iterative reconstruction. REPORTING DATA: Count of CT and Cardiac NM exams in prior 12 months: This patient has received 6 known CTs and 0 known cardiac nuclear medicine studies in the 12 months prior to the current study. COMPARISON: CT CERVICAL SPINE WO CON 05/29/2023 2:25 PM FINDINGS: Bones/joints: No acute fracture. Normal alignment. C2-C3: No significant disc bulge or herniation. No severe spinal canal stenosis. No significant neural foraminal narrowing. C3-C4: No significant disc bulge or herniation. No severe spinal canal stenosis. No significant neural foraminal narrowing. C4-C5: No significant disc bulge or herniation. No severe spinal canal stenosis. No significant neural foraminal narrowing. C5-C6: No significant disc bulge or herniation. No severe spinal canal stenosis. No significant neural foraminal narrowing. C6-C7: No significant disc bulge or herniation. No severe spinal canal stenosis. No significant neural foraminal narrowing. C7-T1: No significant disc bulge or herniation. No severe spinal canal stenosis. No significant neural foraminal narrowing. Lungs: Lung apices are normal. Soft tissues: Unremarkable. IMPRESSION: No acute findings.
--- NOTE | 2023-06-02 20:21 | ECG_ITS ---
APPROVED REPORT Exam: Resting ECG HR:73 bpm ECG Measurements Heart Rate 73 AXES GA 178 P 115 QRSd 85 QRS 23 QT 361 T 65 QTc 387 Conclusion SINUS RHYTHM POSSIBLE RIGHT VENTRICULAR CONDUCTION DELAY [RSR (QR) IN V1/V2] NONSPECIFIC ST & T-WAVE ABNORMALITY BORDERLINE ECG UNCONFIRMED REPORT Electronically signed by : Demarcus Virk MD 06/04/2023 17:13:13
[2023-06-02 20:36] LABS: VBG Base Excess -2.1 mmol/L (-2.4-2.3); VBG HCO3 23.2 mmol/L (23-30); VBG Oxygen Saturation 93.6 % (50-70); VBG PCO2 40.8 mmol/L (35-51); VBG PH 7.37 mmol/L (7.31-7.41); VBG PO2 74.3 mmol/L (28-40); VBG Total CO2 24.4 mmol/L (23-27)
[2023-06-02 20:36] LABS: Basophils % 0.8 % (0.1-2.0); Eosinophils # 0.2 K/mm3 (0.0-0.4); Eosinophils % 3.9 % (0.1-12.0); Hematocrit 43.1 % (37.0-47.0); Hemoglobin 13.8 g/dL (12.2-16.2); Lymphocytes % 43.1 % (10-50); Mean Corpuscular HGB Conc 32.1 g/dL (31.8-35.4); Mean Corpuscular Hemoglobin 28.7 pg (27.0-31.2); Mean Corpuscular Volume 89.6 fl (81-99); Mean Platelet Volume 8.6 fl (7.4-10.4); Monocytes # 0.4 K/mm3 (0.1-1.0); Monocytes % 8.3 % (1.7-9.3); Neutrophils # 2.1 K/mm3 (1.8-7.8); Platelet Count 361 K/mm3 (142-424); Red Blood Count 4.82 M/mm3 (4.20-5.40); Red Cell Distribution Width 14.1 % (11.5-17.5); White Blood Count 4.8 K/mm3 (4.8-10.8)
--- NOTE | 2023-06-02 20:38 | PC.NURSE ---
Patient gone to CT at this time.
[2023-06-02 20:42] LABS: Microscopic, Urine URINE MICROSCOPIC (MICROSCOPIC)
[2023-06-02 20:43] LABS: Appearance,Urine CLEAR (Clear); Bilirubin,Urine Negative (Negative); Blood, Urine TRACE-I (Negative); Color,Urine YELLOW (Yellow); Glucose,Urine (UA) Negative (Negative); Ketones,Urine Negative (Negative); Leukocyte Esterase,Urine Negative (Negative); Nitrate,Urine Negative (Negative); Protein,Urine Negative (Negative); Specific Gravity, Urine 1.025 (1.005-1.030); Urobilinogen,Urine 0.2 EU/dl (0.2)
[2023-06-02 20:43] LABS: Alanine Aminotransferase 28 U/L (12-78); Albumin Level 3.7 g/dl (3.5-5.0); Albumin/Globulin Ratio 1.1 (1.1-1.8); Alkaline Phosphatase 111 U/L (38-126); Aspartate Amino Transferase 44 U/L (14-36); Bilirubin,Total 0.5 mg/dl (0.2-1.3); Blood Urea Nitrogen 7 mg/dl (7-17); Calcium 9.5 mg/dl (8.4-10.2); Carbon Dioxide 28 mmol/L (22.0-30.0); Chloride 106 mmol/L (98-107); Creatinine Clearance Estimated 63 mL/min (50-200); Estimated Glomerular Filt Rate 102 ml/min (>60); GFR (African American) 123 ML/MIN (>60); Globulin 3.3 g/dL (1.3-3.2); Glucose 97 mg/dl (74-100); Lactic Acid 0.9 mmol/L (0.7-2.1); Lipase 37 U/L (23-300); Sodium 139 mmol/L (136-145)
--- NOTE | 2023-06-02 20:56 | HMH.EDGENADL ---
Discharge Plan Disposition Patient Disposition: Admitted Chief Complaint: Fall Prescriptions Prescriptions: No Action oxybutynin chloride 10 mg Tablet Extended Release 24hr 10 mg PO DAILY Hold Instructions: Resume on 04/30/23. metoprolol tartrate 100 mg Tablet 100 mg PO BID clonazepam 0.5 mg tablet 0.5 mg PO TID Patient Comments: 0.5 MG orally three times a day risperidone 3 mg Tablet 3 mg PO BID nifedipine 60 mg Tablet Extended Release 24hr 60 mg PO DAILY nystatin 100,000 unit/gram Cream 1 applic TOPICAL QIDP PRN (Reason: Redness) bupropion HCl 150 mg Tablet Extended Release 24 Hr 150 mg PO DAILY sodium chloride 1,000 mg tablet,soluble 1,000 mg PO DAILY cephalexin 500 mg capsule 500 mg PO QID 7 Days Qty: 28 0RF Rx Instructions: First dose on 04/24/23 cefdinir 300 mg capsule 300 mg PO BID 10 Days Qty: 20 0RF Referrals Follow up/Referrals: Monty Jimenes MD [Primary Care Provider] - See instructions Clinical Impressions Clinical Impression: AMS (altered mental status), Fall, Declining functional status Discharge ED Provider: Rajan Timmons General Adult HPI General Chief complaint: Fall Stated complaint: fall Time Seen by Provider: 06/02/23 20:18 Mode of Arrival: EMS Source of Information: Patient and EMS Limitations: Physical Limitations Description of Symptoms (Recalled from ER Triage Doc. by RN): per ems pt fell out of bed, has had multiple falls over the last few days History of Present Illness HPI narrative: 62-year-old female with history of hypertension, hyperlipidemia, schizophrenia, schizoaffective disorder, numerous UTIs presenting with fall. Patient was found laying next to her bed by workers at [facility]. Patient not providing much history. Does not remember fall. Does not know if she hit her head, denies pain anywhere other than in the center of her chest after the fall. Pain not currently present, does not radiate, no associated other symptoms. Related Data Home Medications Medication Instructions Recorded Confirmed bupropion HCl 150 mg 24 hr tablet, 150 mg PO DAILY mood 04/22/23 04/22/23 extended release clonazepam 0.5 mg tablet 0.5 mg PO TID Anxiety 04/22/23 04/22/23 metoprolol tartrate 100 mg tablet 100 mg PO BID High Blood Pressure 04/22/23 04/22/23 nifedipine 60 mg tablet,extended 60 mg PO DAILY High Blood Pressure 04/22/23 04/22/23 release 24 hr nystatin 100,000 unit/gram topical 1 applic topical QIDP PRN Redness 04/22/23 04/22/23 cream oxybutynin chloride 10 mg 10 mg PO DAILY Urinary 04/22/23 04/22/23 tablet,extended release 24 hr risperidone 3 mg tablet 3 mg PO BID mood 04/22/23 04/22/23 sodium chloride 1,000 mg soluble 1,000 mg PO DAILY Supplement 04/22/23 04/22/23 tablet Previous Rx's Medication Instructions Recorded cephalexin 500 mg capsule 500 mg PO QID 7 days #28 caps 04/23/23 cefdinir 300 mg capsule 300 mg PO BID 10 days #20 caps 05/29/23 Allergies Allergy/AdvReac Type Severity Reaction Status Date / Time ciprofloxacin [From CIPRO] Allergy Unknown Verified 04/19/23 18:39 [facility] Disclaimer: The information contained in this section may have been updated after the patient was seen, as this information can be updated by other users. Social History Smoking Status: Never smoker alcohol intake: never current occupational status: disabled Travel in the last 8 weeks: None housing: custodial ROS Obtained: Yes All systems reviewed & no additional complaints except as documented Physical Exam General General appearance: alert, in no apparent distress and lethargic Head Head exam: atraumatic and normocephalic Eye Eye exam: Present normal appearance, PERRL and EOMI ENT ENT exam: Present mucous membranes moist Neck Neck exam: Present normal inspection, full ROM and trachea midline Respiratory
[2023-06-02 21:00] LABS: RBC,Urine Occasional #/hpf (0-3); Squamous Epithelial Cell,Urine Occasional #/hpf (0-5); WBC,Urine Occasional #/hpf (0-3)
[2023-06-02 21:00] LABS: T4 (Thyroxine) 12.6 ug/dl (5.53-11.0); Troponin I < 0.01 ng/ml (0.00-0.034)
[2023-06-02 21:14] LABS: Thyroid Stimulating Hormone 2.53 uIU/mL (0.465-4.68)
--- NOTE | 2023-06-02 21:30 | PC.NURSE ---
on phone with hospitalist
--- NOTE | 2023-06-02 21:39 | PC.NURSE ---
Patient admitted to 2nd floor at this time.
--- NOTE | 2023-06-02 21:39 | PC.NURSE ---
notified [facility] house laborer of admission
--- NOTE | 2023-06-02 21:40 | PC.NURSE ---
OBSERVATION ADMISSION TO 207 WITH DX OF FREQUENT FALLS TO SERVICE OF HOSPITALIST.
--- NOTE | 2023-06-02 21:55 | PC.NURSE ---
Hospitalist in room at this time.
[2023-06-02 22:00] VITALS: O2SAT 96
--- NOTE | 2023-06-02 22:02 | PC.NURSE ---
Redness noted in groin areas, incontinent of bladder, cleaned dry and changed, multiple stages of bruising noted on knees and arms
--- NOTE | 2023-06-02 22:02 | PC.NURSE ---
2767 RECEIVED PHONE REPORT FROM MARY RN/ED NURSE . PATIENT IS 62 YO FEMALE. ADMISSION DIAGNOSIS: AMS/ FREQ FALLS. JANUARY TRANSPORT PER W/C.
[2023-06-02 22:03] VITALS: BP 119/66; PULSE 68; RESP 14; TEMP 36.6; O2SAT 96
--- NOTE | 2023-06-02 22:08 | PC.NURSE ---
unable to verify home medications, [facility] system down.
--- NOTE | 2023-06-02 22:20 | PC.NURSE ---
PT arrived to the floor via wheelchair @ [id number]
--- NOTE | 2023-06-02 22:20 | PC.NURSE ---
2215 PATIENT ARRIVED TO THE FLOOR VIA W/C. ADMITTED TO 207.
[2023-06-02 22:33] VITALS: BP 129/60; PULSE 83; RESP 18; TEMP 36.6; O2SAT 97
--- NOTE | 2023-06-02 22:37 | EXP.HP ---
History of Present Illness *Admission Date: 06/02/23 *Reason for visit:: AMS *History of present illness: 62-year-old presented to ED from [facility] after being found down. Pt is poor historian and unable to answer questions which is reported to be her baseline. PMHX of dementia, hypertension, hyperlipidemia, schizophrenia, schizoaffective disorder, numerous UTIs. [facility] reports multiply falls. Unknown LOC. ED work up revealed no abnormal lab values. CT of head with severe volume loss and cervical spine without acute changes. The ED physician consulted the hospitalist team for further medical management and need for social admit for placement/next site of care. Pt does not answer questions but denies any pain. PT ordered. [facility] Social History Smoking Status: Never smoker alcohol intake: never current occupational status: disabled Travel in the last 8 weeks: None housing: [facility] Review of Systems Review of Systems Review of systems:: unable to obtain *Cardiovascular Cardiovascular: Reports system reviewed and no additional complaints, except as documented *Respiratory Respiratory: Reports system reviewed and no additional complaints, except as documented *Gastrointestinal Gastrointestinal: Reports system reviewed and no additional complaints, except as documented *Genitourinary Genitourinary: Reports system reviewed and no additional complaints, except as documented *Musculoskeletal Musculoskeletal: Reports system reviewed and no additional complaints, except as documented *Neurologic Neurologic: Reports system reviewed and no additional complaints, except as documented Meds Home Medications and Allergies Home Medications Medication Instructions Recorded Confirmed Type bupropion HCl 150 mg 24 hr tablet, 150 mg PO DAILY mood 04/22/23 06/03/23 History extended release clonazepam 0.5 mg tablet 0.5 mg PO TIDP PRN Anxiety 04/22/23 06/03/23 History metoprolol tartrate 100 mg tablet 100 mg PO BID High Blood Pressure 04/22/23 06/03/23 History nifedipine 60 mg tablet,extended 60 mg PO DAILY High Blood Pressure 04/22/23 06/03/23 History release 24 hr nystatin 100,000 unit/gram topical 1 applic topical QIDP PRN Redness 04/22/23 06/03/23 History cream sodium chloride 1,000 mg soluble 1,000 mg PO DAILY Supplement 04/22/23 06/03/23 History tablet benztropine 1 mg tablet 1 mg PO BID Mood 06/03/23 06/03/23 History cefdinir 300 mg capsule 300 mg PO BID Infection 06/03/23 06/03/23 History haloperidol 5 mg tablet 5 mg PO BID Mood 06/03/23 06/03/23 History oxybutynin chloride 10 mg 10 mg PO DAILY Bladder 06/03/23 06/03/23 History tablet,extended release 24 hr risperidone 3 mg tablet 3 mg PO BID Mood 06/03/23 06/03/23 History New Prescriptions to Start Prescriptions: Allergies Allergy/AdvReac Type Severity Reaction Status Date / Time ciprofloxacin [From CIPRO] Allergy Unknown Verified 04/19/23 18:39 Exam Data for Last 24 hours Vital signs and Labs for Last 24 Hours: Temp Pulse Resp BP Pulse Ox O2 Del Method 97.8 F 83 18 129/60 97 Room Air 06/02/23 22:33 06/02/23 22:33 06/02/23 22:33 06/02/23 22:33 06/02/23 22:33 06/02/23 22:33 Laboratory Results - last 24 hr 06/02/23 20:21: VBG pH 7.37, VBG pCO2 40.8, VBG pO2 74.3 H, VBG HCO3 23.2, VBG Total CO2 24.4, VBG O2 Saturation 93.6 H, VBG Base Excess -2.1 06/02/23 20:30: WBC 4.8, RBC 4.82, Hgb 13.8, Hct 43.1, MCV 89.6, MCH 28.7, MCHC 32.1, RDW 14.1, Plt Count 361, MPV 8.6, Neut % (Auto) 44.0, Lymph % (Auto) 43.1, Buchanan % (Auto) 8.3, Eos % (Auto) 3.9, Baso % (Auto) 0.8, Neut # (Auto) 2.1, Lymph # (Auto) 2.0, Buchanan # (Auto) 0.4, Eos # (Auto) 0.2, Baso # (Auto) 0.0, Sodium 139, Potassium 4.0, Chloride 106, Carbon Dioxide 28, Anion Gap 9.0, BUN 7, Creatinine 0.60, Estimated Creat Clear 63, Estimated GFR 102, Est GFR ( Amer) 123, Glucose 97, Lactate 0.9, Calcium 9.5, Total Bilirub
--- NOTE | 2023-06-02 22:37 | PC.NURSE ---
Pt very confused. ao x1. unable to get medical paperwork due to [employer] system being down. admission done to best of ability. unable to med rec at this time.
--- NOTE | 2023-06-02 23:57 | PC.NURSE ---
PATIENT REFUSED LAB DRAW FOR TROPONIN.
[2023-06-03 04:00] VITALS: BP 130/77; PULSE 63; RESP 16; TEMP 36.5; O2SAT 97
--- NOTE | 2023-06-03 04:28 | PC.NURSE ---
PATIENT PULLED IV OUT OF RAC. BATH RECEIVED. Pauly BENÍTEZ. NOTIFIED AND SAYS LEAVE IV OUT FOR NOW.
--- NOTE | 2023-06-03 04:33 | PC.NURSE ---
PATIENT IS ORIENTED TO SELF. FOLLOWS SIMPLE COMMANDS. KNOWS HER NAME. NAD. VSS/AFEBRILE. BED ALARM IN USE.
[2023-06-03 07:32] VITALS: BP 129/70; PULSE 56; RESP 17; TEMP 36.5; O2SAT 94
--- NOTE | 2023-06-03 09:26 | HMH.PHAINT1 ---
Pharmacy Intervention Comments: MEDICATION RECONCILIATION COMPLETED ON PATIENT BY CALLING DEE [facility]UM. -MELISSA FRANCISCO, JOSE ANGELD
--- NOTE | 2023-06-03 10:12 | EXP.PN ---
Subjective *Date: 06/03/23 *Time: 10:12 Interval history: The patient is seen and examined at bedside today. I am accompanied by her nurse Coral. She reports that the patient is minimally verbal. She reports that she is afebrile with stable heart rates and improved blood pressures. She is saturating appropriately on room air. Her CBC and CMP are normal. Her head CT identifies severe volume loss. Her ED ECG identifies QTc 387 MS. Pharmacology has reconciled her home medications. Case management is assisting with next site of care. Exam Data for Last 24 hours Vital signs and Labs for Last 24 Hours: Temp Pulse Resp BP Pulse Ox O2 Del Method 97.7 F 56 L 17 129/70 94 L Room Air 06/03/23 07:32 06/03/23 07:32 06/03/23 07:32 06/03/23 07:32 06/03/23 07:32 06/03/23 07:32 Laboratory Results - last 24 hr 06/02/23 20:21: VBG pH 7.37, VBG pCO2 40.8, VBG pO2 74.3 H, VBG HCO3 23.2, VBG Total CO2 24.4, VBG O2 Saturation 93.6 H, VBG Base Excess -2.1 06/02/23 20:30: WBC 4.8, RBC 4.82, Hgb 13.8, Hct 43.1, MCV 89.6, MCH 28.7, MCHC 32.1, RDW 14.1, Plt Count 361, MPV 8.6, Neut % (Auto) 44.0, Lymph % (Auto) 43.1, Rice % (Auto) 8.3, Eos % (Auto) 3.9, Baso % (Auto) 0.8, Neut # (Auto) 2.1, Lymph # (Auto) 2.0, Rice # (Auto) 0.4, Eos # (Auto) 0.2, Baso # (Auto) 0.0, Sodium 139, Potassium 4.0, Chloride 106, Carbon Dioxide 28, Anion Gap 9.0, BUN 7, Creatinine 0.60, Estimated Creat Clear 63, Estimated GFR 102, Est GFR ( Amer) 123, Glucose 97, Lactate 0.9, Calcium 9.5, Total Bilirubin 0.5, AST 44 H, ALT 28, Alkaline Phosphatase 111, Troponin I < 0.01, Total Protein 7.0, Albumin 3.7, Globulin 3.3 H, Albumin/Globulin Ratio 1.1, Lipase 37, TSH 2.53, Thyroxine (T4) 12.6 H 06/02/23 20:40: Urine Color Yellow, Urine Appearance Clear, Urine pH 6.0, Ur Specific Page 1.025, Urine Protein Negative, Urine Glucose (UA) Negative, Urine Ketones Negative, Urine Blood Trace-i, Urine Nitrate Negative, Urine Bilirubin Negative, Urine Urobilinogen 0.2, Ur Leukocyte Esterase Negative, Urine RBC Occasional, Urine WBC Occasional, Ur Squamous Epith Cells Occasional, Urine Bacteria None Temp Pulse Resp BP Pulse Ox O2 Del Method O2 Flow Rate 98.7 F 81 16 149/81 H 98 Room Air 2 04/23/23 04:00 04/23/23 04:00 04/23/23 04:00 04/23/23 04:00 04/23/23 04:00 04/23/23 06:48 04/22/23 20:47 Laboratory Results - last 24 hr 04/22/23 04:18: POC Glucose 100 04/22/23 06:51: Hgb 12.2 D 04/23/23 07:25: WBC 11.7 H D, RBC 4.44, Hgb 13.2, Hct 40.7, MCV 91.8, MCH 29.8, MCHC 32.5, RDW 13.1, Plt Count 349, MPV 8.0, Neut % (Auto) 70.4, Lymph % (Auto) 20.7, Rice % (Auto) 5.8, Eos % (Auto) 2.9, Baso % (Auto) 0.3, Neut # (Auto) 8.2 H, Lymph # (Auto) 2.4, Rice # (Auto) 0.7, Eos # (Auto) 0.3, Baso # (Auto) 0.0 I & O for Last 24 hours: Intake & Output 05/31/23 06/01/23 06/02/23 06/03/23 23:59 23:59 23:59 23:59 Intake Total 0 / 0 Output Total 50 / 50 Balance -50 / -50 Weight 69.428 kg 69.445 kg Intake & Output 04/20/23 04/21/23 04/22/23 04/23/23 23:59 23:59 23:59 23:59 Intake Total 6330 / 6330 1061 / 1061 Output Total 5600 / 6300 700 / 700 Balance 730 / 30 361 / 361 Weight 74.933 kg 74.389 kg 72.756 kg Microbiology Reports for the Last 24 Hours: Microbiology 04/21/23 23:52 Urine,Catheterized Urine Culture - Preliminary NO GROWTH AFTER 24 HOURS Constitutional Constitutional: no acute distress, obese, chronically ill appearing and cooperative *Routine HEENT Exam Head: Present normocephalic Eye: Present EOMI and PERRL ENT: Present mucous membranes moist Comments: Swelling, redness, tenderness at the angle of the mandible on the right. Less swelling, redness, tenderness compared to yesterday. *Routine Neck Exam Neck: Present supple and trachea midline; Absent lymphadenopathy *Routine Respiratory Exam Respiratory: Present CTA bilaterally, normal respiratory effort and symmetric chest movement *Routi
[2023-06-03 11:10] LABS: Basophils % 0.7 % (0.1-2.0); Eosinophils # 0.2 K/mm3 (0.0-0.4); Eosinophils % 3.1 % (0.1-12.0); Hematocrit 45.8 % (37.0-47.0); Hemoglobin 14.8 g/dL (12.2-16.2); Lymphocytes # 1.9 K/mm3 (0.7-4.5); Lymphocytes % 39.6 % (10-50); Mean Corpuscular HGB Conc 32.3 g/dL (31.8-35.4); Mean Corpuscular Hemoglobin 29.3 pg (27.0-31.2); Mean Corpuscular Volume 90.7 fl (81-99); Mean Platelet Volume 8.2 fl (7.4-10.4); Monocytes # 0.3 K/mm3 (0.1-1.0); Monocytes % 6.7 % (1.7-9.3); Neutrophils # 2.4 K/mm3 (1.8-7.8); Neutrophils % 49.9 % (37.0-80.0); Platelet Count 342 K/mm3 (142-424); Red Blood Count 5.05 M/mm3 (4.20-5.40); Red Cell Distribution Width 14.1 % (11.5-17.5); White Blood Count 4.9 K/mm3 (4.8-10.8)
[2023-06-03 11:15] LABS: Chloride 103 mmol/L (98-107); Potassium 3.8 mmoL/L (3.5-5.1); Sodium 138 mmol/L (136-145)
[2023-06-03 11:18] LABS: Anion Gap 8.8 mEq/L (5-15); Blood Urea Nitrogen 8 mg/dl (7-17); Carbon Dioxide 30 mmol/L (22.0-30.0); Creatinine Clearance Estimated 65 mL/min (50-200); Estimated Glomerular Filt Rate 102 ml/min (>60); GFR (African American) 123 ML/MIN (>60); Glucose 114 mg/dl (74-100)
[2023-06-03 11:19] LABS: Calcium 9.6 mg/dl (8.4-10.2)
[2023-06-03 11:31] LABS: Troponin I < 0.01 ng/ml (0.00-0.034)
[2023-06-03 15:29] VITALS: BP 130/64; PULSE 67; RESP 16; TEMP 36.6; O2SAT 97
--- NOTE | 2023-06-03 18:09 | PC.NURSE ---
Patient has had vital signs stable throughout shift. Intermittent sleepiness throughout shift
[2023-06-03 20:00] VITALS: BP 102/56; PULSE 70; RESP 16; TEMP 36.7; O2SAT 98
[2023-06-04 04:00] VITALS: BP 102/52; PULSE 57; RESP 20; TEMP 36.6; O2SAT 98
--- NOTE | 2023-06-04 05:18 | PC.WOUNDNOTE ---
Patient has had a great night. Has been up to the bathroom twice. Has been able to rest through the night. No other issues noted
--- NOTE | 2023-06-04 06:00 | ECG_ITS ---
APPROVED REPORT Exam: Resting ECG HR:66 bpm ECG Measurements Heart Rate 66 AXES MA 202 P 48 QRSd 84 QRS 36 QT 390 T 63 QTc 403 Conclusion SINUS RHYTHM LOW QRS VOLTAGE IN PRECORDIAL LEADS [QRS DEFLECTION < 1.0 mV IN CHEST LEADS] POSSIBLE ANTERIOR MYOCARDIAL INFARCTION , OF INDETERMINATE AGE [30 ms Q WAVE IN V3/V4, OR R < 0.2 mV IN V4] MODERATE T-WAVE ABNORMALITY, CONSIDER LATERAL ISCHEMIA [-0.1+ mV T-WAVE IN I/aVL/V5/V6] ABNORMAL ECG UNCONFIRMED REPORT Electronically signed by : Demarcus Virk MD 06/04/2023 17:08:29
[2023-06-04 07:54] VITALS: BP 130/107; PULSE 74; RESP 18; TEMP 37.2; O2SAT 99
--- NOTE | 2023-06-04 10:07 | HMH.OTEV ---
OT Inpatient Evaluation Rehab OT IP Evaluation Start: 06/04/23 07:28 Freq: ONCE Status: Active Protocol: Document 06/04/23 09:22 TENISHAELANA (Rec: 06/04/23 09:29 TENISHAELANA [id number]) Rehab OT IP Assessment Subjective History 62-year-old presented to ED from [facility] after being found down. Pt is poor historian and unable to answer questions which is reported to be her baseline. PMHX of dementia, hypertension, hyperlipidemia, schizophrenia, schizoaffective disorder, numerous UTIs. [facility] reports multiply falls. Unknown LOC. ED work up revealed no abnormal lab values. CT of head with severe volume loss and cervical spine without acute changes. The ED physician consulted the hospitalist team for further medical management and need for social admit for placement /next site of care. Pt does not answer questions but denies any pain. Patient is a poor historian and unable to verbalize PLOF with ADLs and fx'l mobility. Resident at [facility]. Subjective Maybe. I need to use the restroom. Instructed Patient on proper hand and foot placement to complete bed mobility task from supine->sit @ EOB ->stand ->ambulate to restroom with hand held assistance x2. Patient continent of bladder mgt tr this date. Patient completed toilet hygiene s/u. Assisted patient back to EOB, however patient fell into bed vs following commands to transfer safely. Patient required Mod A X2 to be repositioned to prevent fall risk. Objective Patient Orientation Name Upper Extremity Gross ROM WFL Bed Mobility
--- NOTE | 2023-06-04 10:11 | SW/DCPLANNER ---
Addendum entered by Mechelle eBnitez 06/04/23 14:17: [facility] is able to accept this patient ICF level of care today. I have updated patient's sister and she is agreeable w/ this plan. I have also updated MD: the plan is for this patient to discharge today. Addendum entered by Mechelle Benitez 06/04/23 11:42: I was able to speak w/ Carolina regarding discharge plans. Carolina is agreeable to placement and prefers she be placed in [facility]. I did inform Carolina due to being medically stable for discharge and needing [facility] bed placement could be difficult. Carolina is agreeable to any facility at this time. I have made contact w/ the following facilities: [facility] ([phone]): nobody in office for admissions today [facility] ([phone]): patient information has been faxed to Jennifer at [phone] [facility] ([phone]): information has been faxed to Yadira at [phone] [facility]( [phone]): no beds available [facility] ([phone]): no answer VM left [facility] ([phone]): no answer VM left [facility] ([phone]): no answer VM left [facility] ([phone]): information has been faxed to Catrina at [phone] [facility]: information has been faxed to [facility]: information has been faxed to [facility] Note: I received a consult on this patient regarding: possible need for placement. Patient currently resides at [facility]. PT/OT evaluated patient and recommended SNF level of care. I have attempted to contact patient's sister (Carolina) regarding discharge plans due to patient being unable to answer questions: no answer at this time VM left.
[2023-06-04 11:43] VITALS: BMI 29.8
--- NOTE | 2023-06-04 11:55 | PC.NURSE ---
Was notifed at 1140, by LUISITO Macias that patient was sitting in the floor. Upon entering the room, patient was sitting up in an style position. When I asked the patient how she ended up in the floor, her response was unclear. Pt has hx of dementia. Upon examination, no new symptoms, scraps, dupree or bruises were identified. MD was notified and no new instruction were given at this time.
--- NOTE | 2023-06-04 14:16 | EXP.DC.SUM ---
General Admission date:: 06/02/23 Discharge date: 06/04/23 HPI HPI HPI: 62-year-old presented to ED from [facility] after being found down. Pt is poor historian and unable to answer questions which is reported to be her baseline. PMHX of dementia, hypertension, hyperlipidemia, schizophrenia, schizoaffective disorder, numerous UTIs. [facility] reports multiply falls. Unknown LOC. ED work up revealed no abnormal lab values. CT of head with severe volume loss and cervical spine without acute changes. The ED physician consulted the hospitalist team for further medical management and need for placement due to senior living needs and inability of her facility to meet her medical needs any longer. Pt does not answer questions but denies any pain. PT ordered. Hospital Course Hospital Course Hospital Course: 62-year-old presented to ED from [facility] after being found down. Pt is poor historian and unable to answer questions which is reported to be her baseline. PMHX of Dementia, hypertension, hyperlipidemia, schizophrenia, schizoaffective disorder, numerous UTIs. [facility] reports multiply falls. Unknown LOC. ED work up revealed no abnormal lab values. CT of head with severe volume loss and cervical spine without acute changes. The ED physician consulted the hospitalist team for further medical management and need for evaluation for placement. Current living situation can no longer meet her nursing needs. Patient remained stable during admission. Social work consulted and assisted with referral to [facility], greatly appreciate their assistance in further care of this patient. Stable for discharge. Problems addressed as follows: DEMENTIA DECLINING FUNCTIONAL STATUS AMS FALLS -Chronically prescribed benzodiazepine therapy. Dosage decreased during admission. Was having multiple falls at [facility] [address] [facility]. Reportedly had UTI however urine negative during admission at our facility. No indication to continue antibiotics after discharge. CBC normal. Imaging of head with severe volume loss but no acute changes. PT evaluated and recommended placement. Case management assisted with care. Patient stable to transition to longterm for further management. Patient had no behavioral disturbances or outburst during admission. Very pleasant and cooperative. HTN -Routine blood pressure monitoring. Blood pressure goal. Sinew metoprolol 100 mg twice daily, nifedipine 60 mg daily. SCHIZOPHRENIA -Continue long-term repeat with risk all 3 mg twice daily, Haldol 5 mg twice daily, and benztropine 1 mg twice daily. Klonopin repeat was decreased during admission to 0.5 mg 3 times a day as needed for agitation. Not required at all during admission. Spent 30 minutes in discharge counseling, documentation, consultation with case management, and direct care with patient. Exam Data for Last 24 hours Vital signs and Labs for Last 24 Hours: Temp Pulse Resp BP Pulse Ox O2 Del Method 98.9 F 74 18 130/107 H 99 Room Air 06/04/23 07:54 06/04/23 07:54 06/04/23 07:54 06/04/23 07:54 06/04/23 07:54 06/04/23 11:00 I & O for Last 24 hours: Intake & Output 06/01/23 06/02/23 06/03/23 06/04/23 23:59 23:59 23:59 23:59 Intake Total 480 / 580 340 / 340 Output Total 450 / 450 1501 / 1501 Balance 30 / 130 -1161 / -1161 Weight 69.428 kg 69.445 kg 69.428 kg Microbiology Reports for the Last 24 Hours: Microbiology 06/02/23 00:00 Urine,Clean Catch Urine Culture - Preliminary NO GROWTH AFTER 24 HOURS Constitutional Constitutional: no acute distress, obese, chronically ill appearing and cooperative *Routine HEENT Exam Head: Present normocephalic Eye: Present EOMI and PERRL ENT: Present mucous membranes moist *Routine Neck Exam Neck: Present supple and trachea midline; Absent lymphadenopathy *Routine Respiratory Exam Respiratory: Present CTA bilaterally, normal respiratory effort and symmet
--- NOTE | 2023-06-04 15:06 | PC.NURSE ---
[facility] contacted for transport
== END 2023-06-04 16:31 ==
LOC: ER 21:47 → 2ND 21:52
PROVIDERS: Nurse Practitioner Critical Care Medicine; Admitting Provider Family Medicine; Emergency Provider Emergency Medicine; PCP Emergency Medicine; Visit Provider Family Medicine
DX: F03.90 Unspecified dementia, unspecified severity, without behavioral disturbance, psychotic disturbance, mood disturbance, and anxiety (principal); I10 Essential (primary) hypertension; F20.9 Schizophrenia, unspecified; E78.5 Hyperlipidemia, unspecified; R41.82 Altered mental status, unspecified; T42.4X5A Adverse effect of benzodiazepines, initial encounter; W19.XXXA Unspecified fall, initial encounter; Z79.899 Other long term (current) drug therapy; R53.81 Other malaise; R29.6 Repeated falls
CPT/HCPCS: 70450; 71045; 72125; 80048; 80053; 81001; 82803; 83605; 83690; 84436; 84443; 84484; 85025; 87040; 87086; 93005; 97163; 97165; 97530; 99285; G0378

== ENCOUNTER 2023-09-20 13:53 | Outpatient (CLI) | payer MEDICARE, MEDICAID, SELFPAY ==
--- NOTE | 2023-09-20 14:04 | XR_ITS ---
FINAL REPORT CLINICAL HISTORY: left hip pain FINDINGS: Left hip Three views were obtained. There is no acute fracture or dislocation. There are mild degenerative changes. No soft tissue abnormality is identified. IMPRESSION: Mild degenerative changes. Reviewed, Interpreted and Dictated by Neil Morley III, MD Transcribed by Alessia Pelayo Authenticated and [facility]
--- NOTE | 2023-09-20 14:04 | XR_ITS ---
FINAL REPORT CLINICAL HISTORY: right hip pain FINDINGS: Right hip Three views were obtained. There is no acute fracture or dislocation. There are mild degenerative changes. No soft tissue abnormality is identified. IMPRESSION: Mild degenerative changes. Reviewed, Interpreted and Dictated by Neil Morley III, MD Transcribed by Alessia Pelayo Authenticated and [facility]
== END 2023-09-20 23:59 ==
PROVIDERS: PCP Internal Medicine Adolescent Medicine; Visit Provider Orthopaedic Surgery
DX: M25.551 Pain in right hip (principal); M25.552 Pain in left hip
CPT/HCPCS: 73502

== ENCOUNTER 2025-01-16 13:58 | Outpatient (CLI) | payer MEDICARE, MEDICAID, SELFPAY ==
[2025-01-16 14:36] LABS: Basophils # 0.1 K/mm3 (0-0.2); Basophils % 0.3 % (0.1-2.0); Eosinophils % 0.1 % (0.1-12.0); Hemoglobin 13.6 g/dL (12.2-16.2); Immature Granulocytes # 0.17 10^3uL; Immature Granulocytes % 1.1 %; Lymphocytes # 1.9 K/mm3 (0.7-4.5); Mean Corpuscular HGB Conc 33.2 g/dL (31.8-35.4); Mean Corpuscular Volume 90.5 fl (81-99); Mean Platelet Volume 10.1 fl (7.4-10.4); Monocytes # 0.7 K/mm3 (0.1-1.0); Monocytes % 4.2 % (1.7-9.3); Neutrophils # 13.1 K/mm3 (1.8-7.8); Neutrophils % 82.3 % (37.0-80.0); Nucleated Red Blood Cells # 0 10^3/uL; Nucleated Red Blood Cells % 0 %; Platelet Count 460 K/mm3 (142-424); Red Blood Count 4.53 M/mm3 (4.20-5.40); Red Cell Distribution Width 12.8 % (11.5-17.5); White Blood Count 15.9 K/mm3 (4.8-10.8)
[2025-01-16 15:01] LABS: Anion Gap 13.6 mEq/L (5-15); Blood Urea Nitrogen 15 mg/dl (7-17); Calcium 10.6 mg/dl (8.4-10.2); Carbon Dioxide 26 mmol/L (22.0-30.0); Chloride 101 mmol/L (98-107); Estimated Glomerular Filt Rate 85 ml/min (>60); GFR (African American) 102 ML/MIN (>60); Glucose 103 mg/dl (74-100); Potassium 4.6 mmoL/L (3.5-5.1); Sodium 136 mmol/L (136-145)
[2025-01-16 15:11] LABS: NT Pro Brain Natriuretic Pep. 169 pg/mL (0-125)
== END 2025-01-16 23:59 | disposition home or self-care (01) ==
LOC: LAB.DROPOF 14:05
PROVIDERS: PCP Internal Medicine Adolescent Medicine; Visit Provider Nurse Practitioner Family
DX: I11.0 Hypertensive heart disease with heart failure (principal); R05.9 Cough, unspecified
CPT/HCPCS: 80048; 83880; 85025

== ENCOUNTER 2025-06-24 17:39 | Emergency (ER) | payer MEDICARE, MEDICAID, SELFPAY ==
[2025-06-24] VITALS (7 sets, daily range): BP systolic 134–170; BP diastolic 62–113; PULSE 77–89; RESP 16–18; TEMP 36.6–36.9; O2SAT 95–98; BMI 34.0
--- NOTE | 2025-06-24 17:37 | ECG_ITS ---
APPROVED REPORT Exam: Resting ECG HR:85 bpm ECG Measurements Heart Rate 85 AXES LA 180 P 56 QRSd 83 QRS 22 QT 328 T 53 QTc 371 Conclusion SINUS RHYTHM LOW QRS VOLTAGE IN PRECORDIAL LEADS [QRS DEFLECTION < 1.0 mV IN CHEST LEADS] BORDERLINE ECG UNCONFIRMED REPORT Electronically signed by : Vahid Fried, 06/24/2025 23:11:06
--- NOTE | 2025-06-24 17:43 | CT_ITS ---
PROCEDURE INFORMATION: Exam: CT Cervical Spine Without Contrast Exam date and time: 06/24/2025 6:00 PM Age: 64 years old Clinical indication: Injury or trauma; Fall; Blunt trauma TECHNIQUE: Imaging protocol: Computed tomography of the cervical spine without contrast. Radiation optimization: All CT scans at this facility use at least one of these dose optimization techniques: automated exposure control; mA and/or kV adjustment per patient size (includes targeted exams where dose is matched to clinical indication); or iterative reconstruction. COMPARISON: CT CERVICAL SPINE WO CON 06/02/2023 8:46 PM FINDINGS: Bones: No evident fracture. Degenerative changes of the C-spine most pronounced at C5-C6 and C6-C7. Alignment and vertebral body heights are intact. Lungs: Lung apices are normal. Soft tissues: Unremarkable. IMPRESSION: Degenerative changes. No acute abnormality.
--- NOTE | 2025-06-24 17:43 | XR_ITS ---
PROCEDURE INFORMATION: Exam: XR Chest Exam date and time: 06/24/2025 6:00 PM Age: 64 years old Clinical indication: Injury or trauma; Fall; Blunt trauma (contusions or hematomas) TECHNIQUE: Imaging protocol: Radiologic exam of the chest. Views: 1 view. COMPARISON: CR XR CHEST PORTABLE 06/02/2023 9:04 PM FINDINGS: Lungs: Unremarkable. No consolidation. Pleural spaces: Unremarkable. No pleural effusion. No pneumothorax. Heart/Mediastinum: Unremarkable. No cardiomegaly. Bones/joints: Unremarkable. IMPRESSION: Stable chest x-ray with no acute disease.
--- NOTE | 2025-06-24 17:43 | CT_ITS ---
PROCEDURE INFORMATION: Exam: CT Head Without Contrast Exam date and time: 06/24/2025 5:58 PM Age: 64 years old Clinical indication: Injury or trauma; Fall; Blunt trauma (contusions or hematomas) TECHNIQUE: Imaging protocol: Computed tomography of the head without contrast. Radiation optimization: All CT scans at this facility use at least one of these dose optimization techniques: automated exposure control; mA and/or kV adjustment per patient size (includes targeted exams where dose is matched to clinical indication); or iterative reconstruction. COMPARISON: CT HEAD/BRAIN WO CON 06/02/2023 8:43 PM FINDINGS: Brain: No intracranial hemorrhage. Generalized atrophic changes of the ventricles and subarachnoid spaces. Chronic small-vessel ischemic changes noted. No mass, mass effect or midline shift. Intracranial atherosclerotic changes are noted. Cerebral ventricles: See Brain finding. Paranasal sinuses: Visualized sinuses are unremarkable. No fluid levels. Mastoid air cells: Visualized mastoid air cells are well aerated. Bones: Unremarkable. No acute fracture. Soft tissues: Unremarkable. IMPRESSION: Stable noncontrast CT brain with chronic changes. No acute intracranial abnormality.
--- NOTE | 2025-06-24 17:43 | XR_ITS ---
PROCEDURE INFORMATION: Exam: XR Pelvis Exam date and time: 06/24/2025 6:00 PM Age: 64 years old Clinical indication: Pelvic pain; Additional info: Fall TECHNIQUE: Imaging protocol: Radiologic exam of the pelvis. Views: 1 or 2 view. COMPARISON: CR XR HIP RT 2-3V W/PELVIS 09/20/2023 2:07 PM FINDINGS: Bones/joints: Unremarkable. No acute fracture. Soft tissues: Unremarkable. IMPRESSION: No acute findings.
--- NOTE | 2025-06-24 17:44 | XR_ITS ---
PROCEDURE INFORMATION: Exam: XR Right Tibia and Fibula Exam date and time: 06/24/2025 6:00 PM Age: 64 years old Clinical indication: Injury or trauma; Fall; Blunt trauma; Lower leg; Right; Additional info: Fall bilateral leg pain/bruising TECHNIQUE: Imaging protocol: Radiologic exam of the right tibia and fibula. Views: 2 views. COMPARISON: CR XR KNEE RT 3V 06/24/2025 6:00 PM FINDINGS: Bones/joints: Normal. No acute fracture identified. Soft tissues: Normal. IMPRESSION: No acute findings.
--- NOTE | 2025-06-24 17:44 | XR_ITS ---
PROCEDURE INFORMATION: Exam: XR Left Knee Exam date and time: 06/24/2025 6:00 PM Age: 64 years old Clinical indication: Pain; Knee; Bilateral; Additional info: Fall bilateral knee pain TECHNIQUE: Imaging protocol: Radiologic exam of the left knee. Views: 3 views. COMPARISON: CR XR KNEE LT 3V 04/19/2023 5:22 PM FINDINGS: Bones/joints: Normal. No fracture evident Soft tissues: Normal. IMPRESSION: No acute findings.
--- NOTE | 2025-06-24 17:44 | XR_ITS ---
PROCEDURE INFORMATION: Exam: XR Left Tibia and Fibula Exam date and time: 06/24/2025 6:00 PM Age: 64 years old Clinical indication: Pain; Lower leg; Bilateral; Additional info: Fall bilateral leg pain/bruise TECHNIQUE: Imaging protocol: Radiologic exam of the left tibia and fibula. Views: 2 views. COMPARISON: CR XR KNEE LT 3V 04/19/2023 5:22 PM FINDINGS: Bones/joints: Normal. No acute fracture identified. Soft tissues: Normal. IMPRESSION: No acute findings.
--- NOTE | 2025-06-24 17:44 | XR_ITS ---
PROCEDURE INFORMATION: Exam: XR Right Knee Exam date and time: 06/24/2025 6:00 PM Age: 64 years old Clinical indication: Pain; Knee; Bilateral; Additional info: Fall bilateral knee pain TECHNIQUE: Imaging protocol: Radiologic exam of the right knee. Views: 3 views. COMPARISON: CR XR TIBIA FIBULA RT 2V 06/24/2025 6:00 PM FINDINGS: Bones/joints: Normal. No fracture evident Soft tissues: Soft tissue swelling around the knee more pronounced laterally. IMPRESSION: No acute fracture.
--- NOTE | 2025-06-24 17:47 | ED_ITS ---
<Statement entered by Karissa Fried MD - 06/24/25 21:52> I was consulted by the EVY, and we discussed the complexity of the problems being addressed. I approved the treatment and management plan for this patient's care in the emergency department, thus performing a substantive portion of the medical decision making. Karissa Fried MD, MELISSA, FACEP Discharge Plan Disposition Patient Disposition: Home, Self-Care Condition: Good Prescriptions Prescriptions: New cefdinir 300 mg capsule 300 mg PO BID 7 Days Qty: 14 0RF No Action clonazepam 0.5 mg tablet 0.5 mg PO HS Qty: 30 5RF Patient Comments: 0.5 MG orally three times a day metoprolol tartrate 100 mg Tablet 100 mg PO BID nifedipine 60 mg Tablet Extended Release 24hr 60 mg PO DAILY nystatin 100,000 unit/gram Cream 1 applic TOPICAL QIDP PRN (Reason: Redness) bupropion HCl 150 mg Tablet Extended Release 24 Hr 150 mg PO DAILY sodium chloride 1,000 mg tablet,soluble 1,000 mg PO DAILY haloperidol 5 mg tablet 5 mg PO BID oxybutynin chloride 10 mg tablet extended release 24hr 10 mg PO DAILY risperidone 3 mg tablet 3 mg PO BID benztropine 1 mg tablet 1 mg PO BID Referrals Follow up/Referrals: Provider,Referral, MD [Primary Care Provider, Medical] - See instructions Activity Restrictions/Add. Instructions Additional Instructions/Restrictions: Please return to the emerged by with any worsening signs or symptoms. Please take all medications at home as prescribed. Please follow with your PCP in the upcoming days. Please take new antibiotic as prescribed. Clinical Impressions Clinical Impression: Fall, UTI (urinary tract infection) Instructions Patient Instructions: DI for Urinary Tract Infection (UTI), How to Prevent Falls Print Language Print Language: Amharic Discharge ED Provider: Karissa Fried General Adult HPI General Chief complaint: Fall Stated complaint: Fall Time Seen by Provider: 06/24/25 17:42 Mode of Arrival: EMS Source of Information: Patient and EMS Description of Symptoms (Recalled from ER Triage Doc. by RN): Reports shuffling her feet and tripping and falling. Denies LOC. Complaint of left knee and right knee pain. History of Present Illness HPI narrative: 61-year-old female presents the emergency department via EMS for witnessed fall at halfway facility, witnessed by nursing staff, per EMS per nursing staff, patient was going to walk and sit down on a couch , in front of the nurses station, when she fell on the couch , patient has baseline gait disturbance, shuffling gait, due to drug-induced secondary parkinsonian, patient at the bedside is GCS of 13, appears to be at baseline, inappropriate words obeys commands and opens eyes spontaneously, there is no LOC according to nursing staff and EMS, patient did not strike her head, complains of bilateral knee pain/leg pain, patient does have some ecchymosis of bilateral lower extremities, noted on the left and right lower extremities, as well as bilateral knees, unsure of chronicity, patient at the bedside denies any acute pain, obeys commands, lifts extremities to command, good strength, thus review of system is limited. Patient has history upon halfway records of MDD, FRANCISCA, hypertension, drug-induced parkinsonian syndromes, schizophrenia, unspecified dementia, hyperlipidemia. Initial triage vitals are unremarkable. Please note that above description of symptoms, in this electronic medical record under categorization of recalled from ER triage doctor by RN are reflective of an initial nursing assessment, however, is not reflective of my full history and physical exam that was personally taken and clarified. Consequentially, this preceding description of symptoms, which may include the patient's categorized chief complaint in the EMR, do not reflect my personal clinical impression, and the ultimate description of history of present illness and patient stated complaints should be deferred to this section of the note. Unless stated otherwise or congruent with this section of the note, additional signs, symptoms, or incongruence should be interpreted as inaccurate with my clinical impression. Onset (ago): hour(s) Related Data Home Medications ?Medication ?Instructions ?Recorded ?Confirmed bupropion HCl 150 mg 24 hr tablet, 150 mg PO DAILY moo d 04/22/23 09/20/23 extended release metoprolol tartrate 100 mg tablet 100 mg PO BID High B lood Pressure 04/22/23 09/20/23 nifedipine 60 mg tablet,extended 60 mg PO DAILY High B lood Pressure 04/22/23 09/20/23 release 24 hr nystatin 100,000 unit/gram topical 1 applic topical QI DP PRN Redness 04/22/23 09/20/23 cream sodium chloride 1,000 mg soluble 1,000 mg PO DAILY Sup plement 04/22/23 09/20/23 tablet benztropine 1 mg tablet 1 mg PO BID Mood 06/03/23 haloperidol 5 mg tablet 5 mg PO BID Mood 06/03/23 oxybutynin chloride 10 mg 10 mg PO DAILY Bladder 06/0309/20/23 tablet,extended release 24 hr risperidone 3 mg tablet 3 mg PO BID Mood 06/03/23 Previous Rx's ?Medication ?Instructions ?Recorded clonazepam 0.5 mg tablet 0.5 mg PO HS #30 tabs cefdinir 300 mg capsule 300 mg PO BID 7 days #14 cap s 06/24/25 Allergies Allergy/AdvReac Type Severity Reaction Status Date / Time ciprofloxacin (From [facility]IPRO) Allergy Unknown Verified 09/20/23 14:35 [facility] Disclaimer: The information contained in this section may have been updated after the patient was seen, as this information can be updated by other users. Medical History CHI (closed head injury) Social History Smoking Status: Never smoker alcohol intake: never current occupational status: disabled Travel in the last 8 weeks?: None housing: halfway Have you lived/traveled outside [place] in past 30 days?: No Contact w/someone who lives/traveled outside [place] past 30 days?: No Exposure to someone with infectious disease in past 14 days?: No Do you have a fever (greater than 100.4 F or 38 C)?: No Have you tested positive for COVID-19?: No Exposed to someone with COVID-19 in past 14 days?: No Do you have a sore throat?: No Do you have a cough?: No Do you have any weakness?: No Do you have any diarrhea?: No Are you experiencing any unusual bleeding?: No Do you have any muscle aches/pain?: No Do you have any abdominal pain?: No Are you experiencing loss of taste or smell?: No Other Medical History Have you received the Flu Vaccine for this season: No Have you received the Pneumonia Vaccine: No ROS Obtained: Yes All systems reviewed & no additional complaints except as documented Physical Exam General General appearance: alert and in no apparent distress Comment: GCS 13, appears to be at baseline, inappropriate words obeys commands, oriented to person, disoriented to place and time, Head Head exam: atraumatic and normocephalic Eye Eye exam: Present PERRL and EOMI ENT ENT exam: Present mucous membranes moist Neck Neck exam: Present normal inspection Chest Chest inspection: Present normal inspection and symmetric chest wall rise Respiratory Respiratory exam: Present normal lung sounds bilaterally; Absent respiratory distress, wheezes or stridor Cardiovascular Cardiovascular exam: Present regular rate and normal rhythm Abdominal Exam Abdominal exam: Present soft; Absent tenderness, guarding, rebound or rigidity Extremities Exam Extremities exam: Present normal inspection, full ROM, tenderness and other (Moves extremities to command, some ecchymoses/tenderness palpation over the patient's bilateral knees and legs, otherwise neurovascular intact, no other obvious open acute fractures or traumatic injuries) Back Exam Back exam: Present normal inspection and full ROM; Absent tenderness, paraspinal tenderness or vertebral tenderness Neurological Exam Neurological exam: Present alert and other (Patient is GCS 13, appears to be at baseline, inappropriate words, obeys commands opens eyes spontaneously, 5-5 strength of bilateral lower and upper extremities, no focal gross neurological deficit no gross sensation deficit repetitive lipsmacking and facial grimacing/movements, tremor at rest of t); Absent oriented X3 Psychiatric Psychiatric exam: Present normal affect Skin Skin exam: Present warm and dry Medical Decision Making Medical Records Medical records reviewed: Yes I reviewed the patient's medical records. Screening: Per USPSTF and CDC recommendations, given the prevalence of disease in our region, it is our hospital?s policy to screen for HIV and viral Hepatitis for all patients aged 18 and over and those with ongoing risk factors. Ralf Inquiry Pt receiving controlled substance: No Ralf was queried for this patient: No Vital Signs: 06/24/25 17:38 06/24/25 19:03 06/24/25 19:30 Temperature 97.9 F Temperature Source Oral Pulse Rate 77 87 Pulse Rate [Radial] 89 Respiratory Rate 18 Blood Pressure 159/84 H 157/84 H Blood Pressure [Right Arm] 170/113 H Blood Pressure Mean [Right Arm] 132 Blood Pressure Source [Right Arm] Automatic Cuff Blood Pressure Position [Right Arm] Sitting 02 Sat by Pulse Oximetry 96 98 95 Oxygen Delivery Method Room Air 06/24/25 19:39 Temperature Temperature Source Pulse Rate Pulse Rate [Radial] Respiratory Rate Blood Pressure Blood Pressure [Right Arm] Blood Pressure Mean [Right Arm] Blood Pressure Source [Right Arm] Blood Pressure Position [Right Arm] 02 Sat by Pulse Oximetry 96 Oxygen Delivery Method Room Air Lab Data Lab results reviewed: Yes I reviewed the patient's lab results. Lab Results 06/24/25 17:00: WBC 12.0 H, RBC 4.02 L, Hgb 11.8 L, Hct 35.8 L, MCV 89.1, MCH 29.4, MCHC 33.0, RDW 13.0, Plt Count 430 H, MPV 9.9, Neut % (Auto) 64.8, Lymph % (Auto) 23.8, [place] % (Auto) 8.0, Eos % (Auto) 2.8, Baso % (Auto) 0.3, Neut # (Auto) 7.8, Lymph # (Auto) 2.9, [place] # (Auto) 1.0, Eos # (Auto) 0.3, Baso # (Auto) 0.0, PT 10.3, INR 0.92, APTT 22.2 L, Sodium 133 L, Potassium 5.1, Chloride 99, Carbon Dioxide 27, Anion Gap 12.1, BUN 14, Creatinine 0.80, Estimated Creat Clear 77, Estimated GFR 72, Est GFR ( Amer) 88, Glucose 104 H, Calcium 9.9, Magnesium 1.7, Total Bilirubin 0.9, AST 46 H, ALT 36, Alkaline Phosphatase 115, Troponin I < 0.01, NT-Pro-B Natriuret Pep 56.8, Total Protein 7.2, Albumin 4.2, Globulin 3.0, Albumin/Globulin Ratio 1.4, HCV Ab EMILY w/Rflx PCR Qn Negative, HIV Ag/Ab Combo Qual Negative 06/24/25 18:37: Urine Color Yellow, Urine Appearance Sl cloudy, Urine pH 6.0, Ur Specific [place] 1.015, Urine Protein Negative, Urine Glucose (UA) Negative, Urine Ketones Negative, Urine Blood Negative, Urine Nitrate Positive A, Urine Bilirubin Negative, Urine Urobilinogen 0.2, Ur Leukocyte Esterase Trace, Urine RBC None, Urine WBC 3-5, Ur Squamous Epith Cells 3-5, Amorphous Sediment 2+, Urine Bacteria 2+ 06/24/25 17:00 06/24/25 17:00 Orders (Tests/Meds): ED MEDICATIONS Discontinued Medications Generic Name Dose Route Start Last Admin Trade Name Freq PRN Reason Stop Dose Admin Ceftriaxone Sodium 1 gm/ 50 mls @ 100 mls/hr 06/24/25 18:55 06/24/25 20:05 Sodium Chloride IV 06/24/25 19:24 Infused ONCE ONE Infusion ORDERS Category Date Time Status CT cervical spine wo con Stat Cat Scan 06/24/25 17:[address] head/brain wo con Stat Cat Scan 06/24/25 17:43 Completed Pelvis XR 1-2 views [XR pelvis 1-2V] Stat Exams 06/24/25 17:43 Completed XR chest portable Stat Exams 06/24/25 17:43 Completed XR knee LT 3V Stat Exams 06/24/25 17:44 Completed XR knee RT 3V Stat Exams 06/24/25 17:44 Completed XR tibia fibula LT 2V Stat Exams 06/24/25 17:44 Completed XR tibia fibula RT 2V Stat Exams 06/24/25 17:44 Completed Complete Blood Count Auto Diff Stat Lab 06/24/25 17:00 Completed Comprehensive Metabolic Panel Stat Lab 06/24/25 17:00 Completed HIV Combo Stat Lab 06/24/25 17:00 Completed Hepatitis C Ab Qual. W/ RFX Stat Lab 06/24/25 17:00 Completed Magnesium Stat Lab 06/24/25 17:00 Completed NT Pro Brain Natriuretic Pep. Stat Lab 06/24/25 17:00 Completed PT INR [Prothrombin Time INR] Stat Lab 06/24/25 17:00 Completed PTT [Activated Partial Thrombo Time] Stat Lab 06/24/25 17:00 Completed Troponin I Q3H Lab 06/24/25 20:45 Ordered Troponin I Q3H Lab 06/24/25 23:45 Ordered Troponin I Stat Lab 06/24/25 17:00 Completed Urinalysis and Microscopic Stat Lab 06/24/25 18:37 Completed Blood Culture Stat Micro 06/24/25 19:20 Received Urine Culture Stat Micro 06/24/25 18:37 Received Medical Decision Narrative: 64-year-old female presents the emergency department as a witnessed fall, no LOC, complaining of bilateral knee and leg pain, differential diagnose include but not limited to encephalopathy, mechanical fall, cardiac arrhythmia, electrolyte disturbance, knee fracture, knee sprain/strain, soft tissue contusion, leg sprain/strain, tib-fib fracture, acute SDH, acute UTI, traumatic SAH, among others. I discussed this patient's case with the attending physician Dr. Fried Will obtain basic laboratory studies, coags, proBNP magnesium troponin urinalysis, EKG, will obtain x-rays of the bilateral knees bilateral tib-fib's, pelvis x-ray chest x-ray, obtain CT head without contrast and CT cervical spine without contrast for further evaluation/characterization of the patient's fall. CBC notable for leukocytosis 12, hemoglobin is 11.8 hematocrit 35.8 appears to be slightly decreased outside of the patient's baseline, thrombocytosis at 430 otherwise unremarkable CBC Mild hyponatremia 133, minimal AST elevation 46 otherwise unremarkable CMP Troponin within normal limits proBNP within normal limits Coags within normal limits UA is positive for nitrites, 3-5 WBCs no RBCs 35 squamous epithelial cells 2+ bacteria, will give 1 g IV ceftriaxone for urinary tract infection. I reviewed the patient's CT head without contrast on the corresponding radiologic report, stable noncontrast CT brain with chronic changes no acute intracranial abnormality. I reviewed the patient's CT cervical spine without contrast along the corresponding radiologic report degenerative changes no acute bony abnormality. I read the patient's left knee x-ray along the corresponding radiologic report, no acute findings. I reviewed the patient's left tib-fib x-ray along the corresponding radiologic no acute findings. I reviewed the patient's right knee x-ray along the corresponding radiologic report, no acute fracture. I reviewed the patient's right tib-fib x-ray along the corresponding radiologic report, no acute findings. I reviewed the patient's chest x-ray along the corresponding radiologic report, stable chest x-ray with no acute disease. I viewed the patient's pelvic x-ray along the corresponding radiologic report, no acute findings. I discussed these findings with the patient at bedside, patient is able to go back to the halfway, seems to be at her neurological baseline, will treat patient's urinary tract infection with cefdinir 300 mg p.o. twice daily for 7 days, and will obtain urine culture. Patient voiced understanding, will arrange transport back to halfway facility. Strict return precaution given Critical Care Critical Care Time Critical Care Time: No
[2025-06-24 18:00] LABS: Hematocrit 35.8 % (37.0-47.0); Hemoglobin 11.8 g/dL (12.2-16.2); Immature Granulocytes % 0.3 %; Mean Corpuscular HGB Conc 33.0 g/dL (31.8-35.4); Mean Corpuscular Hemoglobin 29.4 pg (27.0-31.2); Mean Corpuscular Volume 89.1 fl (81-99); Nucleated Red Blood Cells % 0 %; Platelet Count 430 K/mm3 (142-424); Red Blood Count 4.02 M/mm3 (4.20-5.40); Red Cell Distribution Width-SD 42.0 fL; White Blood Count 12.0 K/mm3 (4.8-10.8)
[2025-06-24 18:14] LABS: Alanine Aminotransferase 36 U/L (12-78); Albumin Level 4.2 g/dl (3.5-5.0); Albumin/Globulin Ratio 1.4 (1.1-1.8); Alkaline Phosphatase 115 U/L (38-126); Anion Gap 12.1 mEq/L (5-15); Aspartate Amino Transferase 46 U/L (14-36); Bilirubin,Total 0.9 mg/dl (0.2-1.3); Blood Urea Nitrogen 14 mg/dl (7-17); Calcium 9.9 mg/dl (8.4-10.2); Carbon Dioxide 27 mmol/L (22.0-30.0); Chloride 99 mmol/L (98-107); Creatinine Clearance Estimated 77 mL/min (50-200); Creatinine,Serum 0.80 mg/dl (0.52-1.04); Estimated Glomerular Filt Rate 72 ml/min (>60); GFR (African American) 88 ML/MIN (>60); Globulin 3.0 g/dL (1.3-3.2); Glucose 104 mg/dl (74-100); Magnesium 1.7 mg/dl (1.6-2.3); Potassium 5.1 mmoL/L (3.5-5.1); Sodium 133 mmol/L (136-145); Total Protein,Serum 7.2 g/dl (6.3-8.2)
[2025-06-24 18:26] LABS: NT Pro Brain Natriuretic Pep. 56.8 pg/mL (0-125)
[2025-06-24 18:29] LABS: Troponin I < 0.01 ng/ml (0.00-0.034)
[2025-06-24 18:40] LABS: Microscopic, Urine URINE MICROSCOPIC (MICROSCOPIC)
[2025-06-24 18:40] LABS: Activated Partial Thrombo Time 22.2 seconds (22.8-30.6); INR 0.92 (0.9-1.1); Prothrombin Time 10.3 seconds (10.1-12.5)
[2025-06-24 18:43] LABS: Bilirubin,Urine Negative (Negative); Color,Urine YELLOW (Yellow); Glucose,Urine (UA) Negative (Negative); Ketones,Urine Negative (Negative); Leukocyte Esterase,Urine TRACE (Negative); PH,Urine 6.0 (5.0-8.5); Protein,Urine Negative (Negative); Specific Gravity, Urine 1.015 (1.005-1.030); Urobilinogen,Urine 0.2 EU/dl (0.2)
[2025-06-24 18:49] LABS: Amorphous Sediment,Urine 2+ /lpf; Bacteria,Urine 2+ /lpf
[2025-06-24 19:02] LABS: Hepatitis C Ab Qual. W/ RFX NEGATIVE (Negative)
--- NOTE | 2025-06-24 19:35 | PC.NURSE ---
Pt was placed on a [place].
--- NOTE | 2025-06-24 20:37 | PC.NURSE ---
Report given to Breana HICKS at [facility]
[2025-06-28 14:13] LABS: Acinetobacter calcoaceticus-ba Not Detected; Bacteroides fragilis Not Detected; Candida auris Not Detected; Candida glabrata Not Detected; Enterobacterales Not Detected; Enterococcus faecalis Not Detected; Enterococcus faecium Not Detected; Klebsiella aerogenes Not Detected; Klebsiella pneumoniae grp Not Detected; Proteus spp. Not Detected; Salmonella spp. Not Detected; Serratia marcescens Not Detected; Staphylococcus epidermidis Not Detected; Staphylococcus lugdunensis Not Detected; Staphylococcus spp. Not Detected; Stenotrophomonas maltophilia Not Detected; Streptococcus agalactiae(GrpB) Not Detected; Streptococcus pyogenes Group A Not Detected; Streptococcus spp. Not Detected
== END 2025-06-24 22:33 | disposition home or self-care (01) ==
PROVIDERS: Physician Assistant; Emergency Provider Student in an Organized Health Care Education/Training Program
DX: N39.0 Urinary tract infection, site not specified (principal); M25.561 Pain in right knee; M25.562 Pain in left knee; B96.20 Unspecified Escherichia coli [E. coli] as the cause of diseases classified elsewhere; E87.1 Hypo-osmolality and hyponatremia; W19.XXXA Unspecified fall, initial encounter
CPT/HCPCS: 70450; 71045; 72125; 72170; 73562; 73590; 80053; 81001; 83735; 83880; 84484; 85025; 85610; 85730; 86803; 87040; 87086; 87088; 87154; 87186; 87389; 93005; 96365; 99285; J0696